=== PATIENT | female | born 1980 | race Caucasian/White ===

== ENCOUNTER 2017-02-05 23:03 | Emergency (ER) | payer SELFPAY ==
--- NOTE | 2017-02-05 23:32 | EDM.PDOC ---
ED HPI GENERAL MEDICAL PROBLEM - General Chief Complaint: Back Pain or Injury Stated Complaint: FALL/LOW BACK PAIN Time Seen by Provider: 02/05/17 23:30 Source of Information: Reports: Patient - History of Present Illness INITIAL COMMENTS - FREE TEXT/NARRATIVE: HISTORY AND PHYSICAL: History of present illness: [] Patient was knocked over by her dog tonight, the dog ran between her legs knocking her down she felt to her bottom she complains of low back pain, history of previous fusion and laminectomy per patient, patient did take Robaxin prior to arrival She rates pain 5/10 nonradiating no footdrop or saddle anesthesia no bowel or urine symptoms Denies head injury loss of consciousness Secondary complaint of left wrist pain Previous hysterectomy Review of systems: As per history of present illness and below otherwise all systems reviewed and negative. Past medical history: As per history of present illness and as reviewed below otherwise noncontributory. Surgical history: As per history of present illness and as reviewed below otherwise noncontributory. Social history: No reported history of drug or alcohol abuse. Family history: As per history of present illness and as reviewed below otherwise noncontributory. Physical exam: HEENT: Atraumatic, normocephalic, pupils reactive, negative for conjunctival pallor or scleral icterus, mucous membranes moist, throat clear, neck supple, nontender, trachea midline. Lungs: Clear to auscultation, breath sounds equal bilaterally, chest nontender. Heart: S1S2, regular, negative for clicks, rubs, or JVD. Abdomen: Soft, nondistended, nontender. Negative for masses or hepatosplenomegaly. Negative for costovertebral tenderness. Pelvis: Stable nontender. 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: Deferred. Rectal: Deferred. Extremities: Atraumatic, negative for cords or calf pain. Neurovascular unremarkable. Neuro: Awake, alert, oriented. Cranial nerves II through XII unremarkable. Cerebellum unremarkable. Motor and sensory unremarkable throughout. Exam nonfocal. Diagnostics: [] Left wrist 3 views Lumbar spine 3 views Therapeutics: [] Toradol 60 mg IM Cataflam Continue Robaxin as prescribed Impression: [] Muscle spasm Acute on chronic low back pain Left wrist pain Chronic history of baseline Definitive disposition and diagnosis as appropriate pending reevaluation and review of above. Treatments SAFETY CONSULTANT: Reports: Other (see below) Other Treatments SAFETY CONSULTANT: robaxin left lower back Pain Score (Numeric/FACES): 8 - Related Data Allergies Allergy/AdvReac Type Severity Reaction Status Date / Time amoxicillin [From Augmentin] Allergy Vomiting Verified 02/05/17 23:11 clavulanic acid Allergy Vomiting Verified 02/05/17 23:11 [From Augmentin] fentanyl Allergy Shortness Verified 02/05/17 23:11 of Breath Latex, Natural Rubber Allergy Blisters Verified 02/05/17 23:11 Home Meds: Home Meds DULoxetine [Cymbalta] 60 mg PO ONETIME 09/06/16 [History] Lisinopril/Hydrochlorothiazide [Lisinopril-Hctz 10-12.5 mg Tab] 1 mg PO DAILY [History] Past Medical History HEENT History: Reports: None Cardiovascular History: Reports: Hypertension Respiratory History: Reports: None Gastrointestinal History: Reports: None 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 History: Reports: None 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: Neurological History: Reports: MS Psychiatric History: Reports: None Endocrine/Metabolic History: Reports: None Hematologic History: Reports: None Oncologic (Cancer) History: Reports: None Dermatologic History: Reports: None - Infectious Disease History Infectious Disease History: Reports: Chicken pox, Measles, MRSA, Mumps - Past Surgical History HEENT Surgical History: Reports: None Female Surgical History: Reports: section, Hysterectomy Musculoskeletal Surgical History: Reports: Other (see below) Other Musculoskeletal Surgeries/Procedures:: back sx Dermatological Surgical History: Reports: None Social & Family History - Family History Family Medical History: Noncontributory - Tobacco Use Smoking Status *Q: Current Every Day Smoker Years of Tobacco use: 15 Packs/Tins Daily: 0.5 - Caffeine Use Caffeine Use: Reports: None - Recreational Drug Use Recreational Drug Use: No ED ROS GENERAL - Review of Systems Review Of Systems: ROS reveals no pertinent complaints other than HPI. ED EXAM, GENERAL - Physical Exam Exam: See Below Course - Vital Signs Last Recorded V/S: Last Vital Signs Temp 37.1 C 02/05/17 23:14 Pulse 97 02/05/17 23:14 Resp 18 02/05/17 23:14 BP 162/93 H 02/05/17 23:14 Pulse Ox 95 02/05/17 23:14 - Orders/Labs/Meds Orders: Active Orders 24 hr Category Date Time Status Lumbar Spine 2 or 3V [CR] Stat Exams 02/05/17 23:29 Taken Wrist Comp Min 3V Lt [CR] Stat Exams 02/05/17 23:29 Taken Ketorolac [Toradol] Med 02/06/17 00:23 Once 60 mg IM ONETIME ONE Departure - Departure Time of Disposition: 00:24 Disposition: Home, Self-Care 01 Condition: good Clinical Impression: Spasm of paraspinal muscle Forms: ED Department Discharge Additional Instructions: Rest Ice 20 minute intervals 3 times daily 7-10 days Medication as prescribed Continue current medications as directed Followup with primary care in 2 weeks sooner as needed The following information is given to patients seen in the emergency department who are being discharged to home. This information is to outline your options for follow-up care. We provide all patients seen in our emergency department with a follow-up referral. The need for follow-up, as well as the timing and circumstances, are variable depending upon the specifics of your emergency department visit. If you don't have a primary care physician on staff, we will provide you with a referral. We always advise you to contact your personal physician following an emergency department visit to inform them of the circumstance of the visit and for follow-up with them and/or the need for any referrals to a consulting specialist. The emergency department will also refer you to a specialist when appropriate. This referral assures that you have the opportunity for follow-up care with a specialist. All of these measure are taken in an effort to provide you with optimal care, which includes your follow-up. Under all circumstances we always encourage you to contact your private physician who remains a resource for coordinating your care. When calling for follow-up care, please make the office aware that this follow-up is from your recent emergency room visit. If for any reason you are refused follow-up, please contact the [facility] emergency department at and asked to speak to the emergency department charge nurse. - My Orders Last 24 Hours: My Active Orders 02/05/17 23:29 Lumbar Spine 2 or 3V [CR] Stat Wrist Comp Min 3V Lt [CR] Stat 02/06/17 00:23 Ketorolac [Toradol] 60 mg IM ONETIME ONE - Assessment/Plan Last 24 Hours: My Active Orders 02/05/17 23:29 Lumbar Spine 2 or 3V [CR] Stat Wrist Comp Min 3V Lt [CR] Stat 02/06/17 00:23 Ketorolac [Toradol] 60 mg IM ONETIME ONE
[2017-02-06] MEDS ORDERED: Ketorolac 60 MG/2 ML SDV IM ONE (00:23)
[2017-02-06 01:25] VITALS: BP 178/95
--- NOTE | 2017-02-06 12:55 | CR ---
EXAM DATE: 02/05/17 PATIENT'S AGE: 36 Patient: WILNER ANTUNEZ Facility: [place], [place] Site . Site : 1980 Study: XRay Spine Lumbar [id number]/28/2017 12:05:53 AM Ordering Physician: Doctor Chaudhary Final Report: INDICATION: Low back pain from injury TECHNIQUE: Lumbar spine radiograph 3 view COMPARISON: None FINDINGS: Bones: Alignment is normal. No acute fractures or aggressive osseous lesions seen. Joints: Transpedicular fusion of L4-5 is noted with an intervening disc spacer. Mild degenerative disc narrowing is present at L3-4. The facet joints are unremarkable in appearance. Soft tissues: Unremarkable. IMPRESSION: 1. No acute osseous injuries are identified. Dictated by Nehemiah Coe MD @ 02/06/2017 12:07:51 AM Dictated by: Nehemiah Coe MD @ 02/06/2017 00:07:54 (Electronic Signature) Report Signed by Proxy and Original Signed Document filed in the Medical Record. MTDD
--- NOTE | 2017-02-06 12:57 | CR ---
EXAM DATE: 02/05/17 PATIENT'S AGE: 36 Patient: WILNER ANTUNEZ Facility: [place], [place] Site . Site : 1980 Study: XRay Extremity Left [id number]/28/2017 12:06:23 AM Ordering Physician: Doctor Chaudhary Final Report: INDICATION: WRIST INJURY TECHNIQUE: Wrist radiograph 3 views left COMPARISON: None FINDINGS: Bones: Alignment is normal. No acute fractures or aggressive bone lesions identified. In particular, the scaphoid is unremarkable in appearance by radiography. Joint spaces: Unremarkable. The carpal rows are intact. Soft tissues: Unremarkable. No radiopaque foreign bodies are identified. IMPRESSION: 1. No acute osseous injuries are noted. Dictated by: Nehemiah Coe MD @ 02/06/2017 00:08:45 (Electronic Signature) Report Signed by Proxy and Original Signed Document filed in the Medical Record. MTDDivine
== END 2017-02-06 01:32 | disposition home or self-care (01) ==
LOC: MW.ED 23:03
DX: M62.830 Muscle spasm of back (principal); M25.532 Pain in left wrist; F17.210 Nicotine dependence, cigarettes, uncomplicated; I10 Essential (primary) hypertension; G35 Multiple sclerosis; Z90.710 Acquired absence of both cervix and uterus; Z98.890 Other specified postprocedural states; Z79.899 Other long term (current) drug therapy; Z88.1 Allergy status to other antibiotic agents; Z91.040 Latex allergy status
CPT/HCPCS: 72100; 73110; 96372; 99283; J1885

== ENCOUNTER 2017-10-17 19:23 | Emergency (ER) | payer SELFPAY ==
[2017-10-17] MEDS ORDERED: Lidocaine 2% Viscous Solution 15 ML Cup PO ONE (19:40)
--- NOTE | 2017-10-17 19:49 | EDM.PDOC ---
ED HPI GENERAL MEDICAL PROBLEM - General Chief Complaint: ENT Problem Stated Complaint: SORE THROAT Time Seen by Provider: 10/17/17 19:35 - History of Present Illness INITIAL COMMENTS - FREE TEXT/NARRATIVE: HISTORY AND PHYSICAL: History of present illness: The patient is a 37-year-old female who has a history of hypertension and MS and presents with complaints of laryngitis and a sore throat that started on Sunday, 4 days ago. She has not had a fever chest pain shortness of breath nausea or vomiting or abdominal pain but has had a hacking cough that she states is usually triggered by a tickle in her throat and laryngitis. She's not coughing any phlegm. She says that she has had this in the past requiring antibiotics and she is concerned that she needs them again. She does not have any local provider here. She has been eating and drinking normally despite the discomfort Review of systems: As per history of present illness and below otherwise all systems reviewed and negative. Past medical history: As per history of present illness and as reviewed below otherwise noncontributory. Surgical history: As per history of present illness and as reviewed below otherwise noncontributory. Social history: No reported history of drug or alcohol abuse. Family history: As per history of present illness and as reviewed below otherwise noncontributory. Physical exam: Gen.: Well-developed well-nourished mildly overweight female who is nontoxic and vital signs been reviewed by me. Patient has a hoarse raspy voice but is not breathless HEENT: Atraumatic, normocephalic, pupils reactive, negative for conjunctival pallor or scleral icterus, mucous membranes moist, throat clear of exudates but there is diffuse posterior oropharyngeal erythema, uvula is midline, there is no cervical adenopathy or nuchal rigidity, neck supple, nontender, trachea midline. Lungs: Clear to auscultation, breath sounds equal bilaterally, chest nontender. Heart: S1S2, regular rate and rhythm no overt murmurs Abdomen: Soft, nondistended, nontender. NABS Pelvis: Deferred 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: Deferred. Rectal: Deferred. Extremities: Atraumatic, negative for cords or calf pain. Neurovascular unremarkable. Neuro: Awake, alert, oriented. Cranial nerves II through XII unremarkable. Cerebellum unremarkable. Motor and sensory unremarkable throughout. Exam nonfocal. Diagnostics: [] Therapeutics: [] I have discussed the patient's elevated blood pressure on arrival here in the department and as she has no headache chest pain shortness of breath neurosensory changes I advised her to continue the medication she has taken and have strongly advised avoiding sodium in her diet and following up with one of our providers for reevaluation and medication adjustment. SHe states understanding Impression: Pharyngitis/laryngitis Definitive disposition and diagnosis as appropriate pending reevaluation and review of above. Throat Pain Score (Numeric/FACES): 9 - Related Data Allergies Allergy/AdvReac Type Severity Reaction Status Date / Time amoxicillin [From Augmentin] Allergy Vomiting Verified 10/17/17 19:36 clavulanic acid Allergy Vomiting Verified 10/17/17 19:36 [From Augmentin] fentanyl Allergy Shortness Verified 10/17/17 19:36 of Breath Latex, Natural Rubber Allergy Blisters Verified 10/17/17 19:36 Home Meds: Home Meds DULoxetine [Cymbalta] 60 mg PO ONETIME 09/06/16 [History] Lisinopril/Hydrochlorothiazide [Lisinopril-Hctz 20-25 mg Tab] 1 each PO DAILY [History] Past Medical History HEENT History: Reports: None Cardiovascular History: Reports: Hypertension Respiratory History: Reports: None Gastrointestinal History: Reports: None 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 History: Reports: None 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: Neurological History: Reports: MS Psychiatric History: Reports: None Endocrine/Metabolic History: Reports: None Hematologic History: Reports: None Oncologic (Cancer) History: Reports: None Dermatologic History: Reports: None - Infectious Disease History Infectious Disease History: Reports: Chicken Pox, Measles, MRSA, Mumps - Past Surgical History Female Surgical History: Reports: Section, Hysterectomy Musculoskeletal Surgical History: Reports: Other (See Below) Social & Family History - Family History Family Medical History: Noncontributory - Tobacco Use Smoking Status *Q: Current Every Day Smoker Years of Tobacco use: 15 Packs/Tins Daily: 0.5 - Caffeine Use Caffeine Use: Reports: None - Recreational Drug Use Recreational Drug Use: No ED ROS GENERAL - Review of Systems Review Of Systems: ROS reveals no pertinent complaints other than HPI. ED EXAM, GENERAL - Physical Exam Exam: See Below (See dictation) Course - Vital Signs Last Recorded V/S: Last Vital Signs Temp 36.7 C 10/17/17 19:38 Pulse 84 10/17/17 19:38 Resp 18 10/17/17 19:38 BP 171/130 H 10/17/17 19:38 Pulse Ox 96 10/17/17 19:38 - Orders/Labs/Meds Meds: Medications Discontinued Medications Generic Name Dose Route Start Last Admin Trade Name Joi PRN Reason Stop Dose Admin Lidocaine HCl 15 ml 10/17/17 19:40 Xylocaine 2% Viscous PO 10/17/17 19:41 ONETIME ONE Departure - Departure Time of Disposition: 19:46 Disposition: Home, Self-Care 01 Condition: Good Clinical Impression: Laryngitis Pharyngitis Qualifiers: Pharyngitis/tonsillitis etiology: unspecified etiology Qualified Code(s): J02.9 - Acute pharyngitis, unspecified - Discharge Information Referrals: PCP,None [Primary Care Provider] - Additional Instructions: The following information is given to patients seen in the emergency department who are being discharged to home. This information is to outline your options for follow-up care. We provide all patients seen in our emergency department with a follow-up referral. The need for follow-up, as well as the timing and circumstances, are variable depending upon the specifics of your emergency department visit. If you don't have a primary care physician on staff, we will provide you with a referral. We always advise you to contact your personal physician following an emergency department visit to inform them of the circumstance of the visit and for follow-up with them and/or the need for any referrals to a consulting specialist. The emergency department will also refer you to a specialist when appropriate. This referral assures that you have the opportunity for followup care with a specialist. All of these measure are taken in an effort to provide you with optimal care, which includes your followup. Under all circumstances we always encourage you to contact your private physician who remains a resource for coordinating your care. When calling for followup care, please make the office aware that this follow-up is from your recent emergency room visit. If for any reason you are refused follow-up, please contact the [facility] emergency department at and ask to speak to the emergency department charge nurse. [facility] Primary care- Internal Medicine and Family [address] [place] [id number] Please use medications as prescribed and please connect with one of our clinic providers for reevaluation and further care in the next few days. Push hydration rest and return to ER as needed and as discussed. Use over-the- counter Tylenol or ibuprofen for pain and fevers. Watch the sodium in the foods that you are eating and please discuss with a new provider in the clinic reevaluation of your blood pressure and your medications.
[2017-10-17 20:07] VITALS: BP 151/101
== END 2017-10-17 19:52 | disposition home or self-care (01) ==
LOC: MW.ED 19:23
DX: J04.0 Acute laryngitis (principal); J02.9 Acute pharyngitis, unspecified; I10 Essential (primary) hypertension; F17.210 Nicotine dependence, cigarettes, uncomplicated; Z88.1 Allergy status to other antibiotic agents; Z91.040 Latex allergy status
CPT/HCPCS: 99282; A9270; 99284

== ENCOUNTER 2017-12-05 12:52 | Emergency (ER) | payer BC ==
[2017-12-05 13:06] VITALS: BP 163/76
[2017-12-05] MEDS ORDERED: Ketorolac 60 MG/2 ML SDV IM ONE (13:17)
--- NOTE | 2017-12-05 13:19 | EDM.PDOC ---
ED HPI GENERAL MEDICAL PROBLEM - General Chief Complaint: Back Pain or Injury Stated Complaint: BACK PAIN Time Seen by Provider: 12/05/17 12:55 Source of Information: Reports: Patient History Limitations: Reports: No Limitations - History of Present Illness INITIAL COMMENTS - FREE TEXT/NARRATIVE: HISTORY AND PHYSICAL: History of present illness: Patient is a 37 showed female who presents to the emergency room with complaints of lumbar back pain 4 days. She does have a history of 5 previous back surgeries to the lumbar spine which were done in [facility]. She states she has last seen a primary care doctor/orthopedic provider since 2014. Reports that over the past 4 days she has had some low back pain that radiates down the left [place]. Does have some leftover Flexeril and [place] which she reports has helped alleviate some of her discomfort. She also takes Aleve and Motrin [id number] which have not subsided her pain. She denies any urinary or fecal incontinence. She is able to ambulate without difficulty. Denies any recent injury, falls, or trauma. Review of systems: As per history of present illness and below otherwise all systems reviewed and negative. Past medical history: As per history of present illness and as reviewed below otherwise noncontributory. Surgical history: As per history of present illness and as reviewed below otherwise noncontributory. Social history: No reported history of drug or alcohol abuse. Family history: As per history of present illness and as reviewed below otherwise noncontributory. Physical exam: Gen.: Well-developed and well-nourished 37 showed female. Alert and oriented. Nontoxic appearing and in no acute distress. HEENT: Atraumatic, normocephalic, pupils reactive, negative for conjunctival pallor or scleral icterus, mucous membranes moist, throat clear, neck supple, nontender, trachea midline. Lungs: Clear to auscultation, breath sounds equal bilaterally, chest nontender. Heart: S1S2, regular rate and rhythm Abdomen: Soft, nondistended, nontender. Negative for masses or hepatosplenomegaly. Negative for costovertebral tenderness. Pelvis: Stable nontender. 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: Deferred. Rectal: Deferred. Extremities: Atraumatic, negative for cords or calf pain. Neurovascular unremarkable. C-Spine/Back: No pinpoint vertebral tenderness upon palpation. No cervical, thoracic, lumbar deformities, step-offs or crepitus. Able to walk on tiptoes and heels without difficulty. No fecal or urinary incontinence. Denies any numbness or tingling to the distal extremities. Neuro: Awake, alert, oriented. Cranial nerves II through XII unremarkable. Cerebellum unremarkable. Motor and sensory unremarkable throughout. Exam nonfocal. Due to the patient's previous surgeries, will get an x-ray today. Patient is aware that she does need to connect with her primary care provider for further management of her low back pain. Toradol will be given here. Lumbar back x-ray shows no acute findings. Hardware appears intact. Prescription for Flexeril (#21) and Cataflam (#30) - NRF. Encourage patient to follow-up in the next couple days with primary care. She voices understanding and is agreeable to plan of care. She denies any questions at this time. Diagnostics: Lumbar x-ray Therapeutics: Toradol IM Impression: Back pain with sciatica Plan: 1. Please take your medications as prescribed. Flexeril may cause drowsiness so do not take it while driving or needing to be functioning at home. These take the Cataflam as directed. Do not take any additional NSAIDs such as Aleve or ibuprofen with this medication. Gentle heat to the area with stretching may also be beneficial. 2. As we discussed it would be important for you to establish care with a local primary care provider for further management of your back pain and general health needs. 3. Follow up as we discussed. Return to the ED as needed and as discussed. Definitive disposition and diagnosis as appropriate pending reevaluation and review of above. Duration: Day(s): Location: Reports: Back lower back Pain Score (Numeric/FACES): 6 - Related Data Allergies Allergy/AdvReac Type Severity Reaction Status Date / Time amoxicillin [From Augmentin] Allergy Vomiting Verified 12/05/17 13:03 clavulanic acid Allergy Vomiting Verified 12/05/17 13:03 [From Augmentin] fentanyl Allergy Shortness Verified 12/05/17 13:03 of Breath Latex, Natural Rubber Allergy Blisters Verified 12/05/17 13:03 Home Meds: Home Meds DULoxetine [Cymbalta] 60 mg PO ONETIME 09/06/16 [History] Lisinopril/Hydrochlorothiazide [Lisinopril-Hctz 20-25 mg Tab] 1 each PO DAILY [History] Past Medical History HEENT History: Reports: None Cardiovascular History: Reports: Hypertension Respiratory History: Reports: None Gastrointestinal History: Reports: None Other Gastrointestinal History: 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 History: Reports: None 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: Musculoskeletal History: Reports: Back Pain, Chronic Neurological History: Reports: MS Psychiatric History: Reports: None Endocrine/Metabolic History: Reports: None Hematologic History: Reports: None Oncologic (Cancer) History: Reports: None Dermatologic History: Reports: None - Infectious Disease History Infectious Disease History: Reports: MRSA - Past Surgical History Female Surgical History: Reports: Section, Hysterectomy Musculoskeletal Surgical History: Reports: Other (See Below) Social & Family History - Family History Family Medical History: Noncontributory - Tobacco Use Smoking Status *Q: Current Every Day Smoker Years of Tobacco use: 13 Packs/Tins Daily: 0.5 - Caffeine Use Caffeine Use: Reports: Soda - Recreational Drug Use Recreational Drug Use: No ED ROS GENERAL - Review of Systems Review Of Systems: ROS reveals no pertinent complaints other than HPI. ED EXAM,LOWER BACK PAIN/INJURY - Physical Exam Exam: See Below (See dictation) Course - Vital Signs Last Recorded V/S: Last Vital Signs Temp 97.2 F 12/05/17 13:04 Pulse 83 12/05/17 13:04 Resp 18 12/05/17 13:04 BP 163/76 H 12/05/17 13:04 Pulse Ox 96 12/05/17 13:04 - Orders/Labs/Meds Orders: Active Orders 24 hr Category Date Time Status Lumbar Spine 2 or 3V [CR] Stat Exams 12/05/17 13:17 Taken Meds: Medications Discontinued Medications Generic Name Dose Route Start Last Admin Trade Name Freq PRN Reason Stop Dose Admin Ketorolac Tromethamine 60 mg 12/05/17 13:17 12/05/17 13:25 Toradol IM 12/05/17 13:18 60 mg ONETIME ONE Administration Departure - Departure Time of Disposition: 14:34 Disposition: Home, Self-Care 01 Clinical Impression: Back pain with sciatica - Discharge Information Referrals: PCP,None [Primary Care Provider] - Forms: ED Department Discharge Additional Instructions: My general discharge The following information is given to patients seen in the emergency department who are being discharged to home. This information is to outline your options for follow-up care. We provide all patients seen in our emergency department with a follow-up referral. The need for follow-up, as well as the timing and circumstances, are variable depending upon the specifics of your emergency department visit. If you don't have a primary care physician on staff, we will provide you with a referral. We always advise you to contact your personal physician following an emergency department visit to inform them of the circumstance of the visit and for follow-up with them and/or the need for any referrals to a consulting specialist. The emergency department will also refer you to a specialist when appropriate. This referral assures that you have the opportunity for follow-up care with a specialist. All of these measure are taken in an effort to provide you with optimal care, which includes your follow-up. Under all circumstances we always encourage you to contact your private physician who remains a resource for coordinating your care. When calling for follow-up care, please make the office aware that this follow-up is from your recent emergency room visit. If for any reason you are refused follow-up, please contact the [facility] Emergency Department at and asked to speak to the emergency department charge nurse. [facility] [address] [place] [id number] 1. Please take your medications as prescribed. Flexeril may cause drowsiness so do not take it while driving or needing to be functioning at home. These take the Cataflam as directed. Do not take any additional NSAIDs such as Aleve or ibuprofen with this medication. Gentle heat to the area with stretching may also be beneficial. 2. As we discussed it would be important for you to establish care with a local primary care provider for further management of your back pain and general health needs. 3. Follow up as we discussed. Return to the ED as needed and as discussed. - My Orders Last 24 Hours: My Active Orders 12/05/17 13:17 Lumbar Spine 2 or 3V [CR] Stat - Assessment/Plan Last 24 Hours: My Active Orders 12/05/17 13:17 Lumbar Spine 2 or 3V [CR] Stat
--- NOTE | 2017-12-05 15:02 | CR ---
EXAMINATION: Lumbar spine HISTORY: Pain COMPARISON: 02/05/2017 TECHNIQUE: AP and lateral views FINDINGS: The lumbar spinal alignment is normal. The vertebral body heights appear well maintained. B one mineralization is normal. Minimal marginal osteophytes are noted. Bilateral posterior fusion hard maza is noted. SI joints are symmetric. IMPRESSION: Mild degenerative and postoperative changes noted within the lumbar spine without acute f indings.
== END 2017-12-05 15:03 | disposition home or self-care (01) ==
LOC: MW.ED 12:52
DX: M54.42 Lumbago with sciatica, left side (principal); I10 Essential (primary) hypertension; F17.210 Nicotine dependence, cigarettes, uncomplicated; Z88.1 Allergy status to other antibiotic agents; Z88.8 Allergy status to other drugs, medicaments and biological substances; Z91.040 Latex allergy status; Z79.899 Other long term (current) drug therapy
CPT/HCPCS: 72100; 96372; 99283; J1885; 99284

== ENCOUNTER 2018-02-26 16:49 | Emergency (ER) | payer BC ==
--- NOTE | 2018-02-26 17:31 | EDM.PDOC ---
ED HPI GENERAL MEDICAL PROBLEM - General Chief Complaint: General Stated Complaint: PT WEAK Time Seen by Provider: 02/26/18 17:30 Source of Information: Reports: Patient - History of Present Illness INITIAL COMMENTS - FREE TEXT/NARRATIVE: HISTORY AND PHYSICAL: History of present illness: [Patient with dental abscess left upper has followed with dentist she is on Keflex and Valentine 7.5 mg which she is overtaken taken 1 tablet every 3 hours, she appears large lethargic mostly due to medication effect No fever nausea vomiting chills sweats no chest pain shortness breath headache dizziness or palpitation no bowel or urine symptoms] Review of systems: As per history of present illness and below otherwise all systems reviewed and negative. Past medical history: As per history of present illness and as reviewed below otherwise noncontributory. Surgical history: As per history of present illness and as reviewed below otherwise noncontributory. Social history: No reported history of drug or alcohol abuse. Family history: As per history of present illness and as reviewed below otherwise noncontributory. Physical exam: HEENT: Atraumatic, normocephalic, pupils reactive, negative for conjunctival pallor or scleral icterus, mucous membranes moist, throat clear, neck supple, nontender, trachea midline. Lungs: Clear to auscultation, breath sounds equal bilaterally, chest nontender. Heart: S1S2, regular, negative for clicks, rubs, or JVD. Abdomen: Soft, nondistended, nontender. Negative for masses or hepatosplenomegaly. Negative for costovertebral tenderness. Pelvis: Stable nontender. 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: Deferred. Rectal: Deferred. Extremities: Atraumatic, negative for cords or calf pain. Neurovascular unremarkable. Neuro: Awake, alert, oriented. Cranial nerves II through XII unremarkable. Cerebellum unremarkable. Motor and sensory unremarkable throughout. Exam nonfocal. Diagnostics: [CBC CMP UA hCG EKG chest 1 view troponin ] Therapeutics: [Continue Keflex as directed Decreased Valentine usage to 7.5 mevery 6-8 hours when necessary ] Impression: Narcotic medication effect History of dental abscesstive disposition and diagnosis as appropriate pending reevaluation and review of above. - Related Data Allergies Allergy/AdvReac Type Severity Reaction Status Date / Time amoxicillin [From Augmentin] Allergy Vomiting Verified 02/26/18 17:13 clavulanic acid Allergy Vomiting Verified 02/26/18 17:13 [From Augmentin] fentanyl Allergy Shortness Verified 02/26/18 17:13 of Breath Latex, Natural Rubber Allergy Blisters Verified 02/26/18 17:13 Home Meds: Home Meds DULoxetine [Cymbalta] 60 mg PO ONETIME 09/06/16 [History] Lisinopril/Hydrochlorothiazide [Lisinopril-Hctz 20-25 mg Tab] 1 each PO DAILY [History] Cephalexin [Keflex] 750 mg PO ASDIRECTED 02/26/18 [History] Diclofenac Sodium/Misoprostol [Arthrotec EC 50 mg-200 Mcg Tab] 1 each PO DAILY 02/26/18 [History] Hydrocodone/Acetaminophen [Valentine 7.5-325 Tablet] 1 each PO ASDIRECTED 02/26/18 [ History] buPROPion [Wellbutrin] 75 mg PO BEDTIME 02/26/18 [History] traMADol [Ultram] 50 mg PO DAILY 02/26/18 [History] Past Medical History HEENT History: Reports: None Cardiovascular History: Reports: Hypertension Respiratory History: Reports: None Gastrointestinal History: Reports: None Other Gastrointestinal History: 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 History: Reports: 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: Musculoskeletal History: Reports: Back Pain, Chronic Neurological History: Reports: MS Psychiatric History: Reports: None Endocrine/Metabolic History: Reports: None Hematologic History: Reports: None Oncologic (Cancer) History: Reports: None Dermatologic History: Reports: None - Infectious Disease History Infectious Disease History: Reports: MRSA - Past Surgical History Female Surgical History: Reports: Section, Hysterectomy Musculoskeletal Surgical History: Reports: Other (See Below) Social & Family History - Family History Family Medical History: Noncontributory - Tobacco Use Smoking Status *Q: Current Every Day Smoker Years of Tobacco use: 16 Packs/Tins Daily: 0.5 - Caffeine Use Caffeine Use: Reports: Soda - Recreational Drug Use Recreational Drug Use: No ED ROS GENERAL - Review of Systems Review Of Systems: ROS reveals no pertinent complaints other than HPI. ED EXAM, GENERAL - Physical Exam Exam: See Below Course - Vital Signs Last Recorded V/S: Last Vital Signs Temp 98.9 F 02/26/18 17:16 Pulse 106 H 02/26/18 17:16 Resp 18 02/26/18 17:16 BP 173/107 H 02/26/18 17:16 Pulse Ox 93 L 02/26/18 17:16 - Orders/Labs/Meds Orders: Active Orders 24 hr Category Date Time Status EKG Documentation Completion [RC] STAT Care 02/26/18 17:15 Active Chest 1V Frontal [CR] Stat Exams 02/26/18 17:15 Taken DRUG SCREEN, URINE [URCHEM] Stat Lab 02/26/18 18:15 Ordered INFLUENZA A+B AG SCREEN [RM] Stat Lab 02/26/18 17:37 Ordered UA W/MICROSCOPIC [URIN] Stat Lab 02/26/18 18:15 Ordered Labs: Laboratory Tests 02/26/18 02/26/18 Range/Units 17:26 17:26 WBC 8.16 (4.0-11.0) K/uL RBC 3.97 L (4.30-5.90) M/uL Hgb 13.0 (12.0-16.0) g/dL Hct 39.1 (36.0-46.0) % MCV 98.5 H (80.0-98.0) fL MCH 32.7 H (27.0-32.0) pg MCHC 33.2 (31.0-37.0) g/dL RDW Std Deviation 46.9 (28.0-62.0) fl RDW Coeff of Dmitriy 13 (11.0-15.0) % Plt Count 245 (150-400) K/uL MPV 10.00 (7.40-12.00) fL Neut % (Auto) 51.6 (48.0-80.0) % Lymph % (Auto) 35.7 (16.0-40.0) % [place] % (Auto) 8.5 (0.0-15.0) % Eos % (Auto) 3.6 (0.0-7.0) % Baso % (Auto) 0.6 (0.0-1.5) % Neut # (Auto) 4.2 (1.4-5.7) K/uL Lymph # (Auto) 2.9 H (0.6-2.4) K/uL [place] # (Auto) 0.7 (0.0-0.8) K/uL Eos # (Auto) 0.3 (0.0-0.7) K/uL Baso # (Auto) 0.1 (0.0-0.1) K/uL Nucleated RBC % 0.0 /100WBC Nucleated RBCs # 0 K/uL Sodium 139 (136-145) mmol/L Potassium 3.7 (3.5-5.1) mmol/L Chloride 102 (98-107) mmol/L Carbon Dioxide 31.6 (21.0-32.0) mmol/L BUN 9 (7.0-18.0) mg/dL Creatinine 0.8 (0.6-1.0) mg/dL Est Cr Clr Drug Dosing TNP Estimated GFR (MDRD) > 60.0 ml/min Glucose 133 H (74-106) mg/dL Calcium 9.1 (8.5-10.1) mg/dL Total Bilirubin 0.2 (0.2-1.0) mg/dL AST 37 (15-37) IU/L ALT 73 H (14-63) IU/L Alkaline Phosphatase 63 (46-116) U/L Creatine Kinase 163 (26-308) U/L Troponin I < 0.050 (0.000-0.056) ng/mL Total Protein 7.2 (6.4-8.2) g/dL Albumin 3.0 L (3.4-5.0) g/dL Globulin 4.2 H (2.0-3.5) g/dL Albumin/Globulin Ratio 0.7 L (1.3-2.8) Departure - Departure Time of Disposition: 18:32 Disposition: Home, Self-Care 01 Condition: Fair Clinical Impression: Dental abscess, Medication side effect - Discharge Information Referrals: PCP,None [Primary Care Provider] - Forms: ED Department Discharge Additional Instructions: Decrease hydrocodone used to 7.5 mg every 6-8 hours Follow-up with dentist as needed No driving while on medications The following information is given to patients seen in the emergency department who are being discharged to home. This information is to outline your options for follow-up care. We provide all patients seen in our emergency department with a follow-up referral. The need for follow-up, as well as the timing and circumstances, are variable depending upon the specifics of your emergency department visit. If you don't have a primary care physician on staff, we will provide you with a referral. We always advise you to contact your personal physician following an emergency department visit to inform them of the circumstance of the visit and for follow-up with them and/or the need for any referrals to a consulting specialist. The emergency department will also refer you to a specialist when appropriate. This referral assures that you have the opportunity for follow-up care with a specialist. All of these measure are taken in an effort to provide you with optimal care, which includes your follow-up. Under all circumstances we always encourage you to contact your private physician who remains a resource for coordinating your care. When calling for follow-up care, please make the office aware that this follow-up is from your recent emergency room visit. If for any reason you are refused follow-up, please contact the [facility] emergency department at and asked to speak to the emergency department charge nurse. - My Orders Last 24 Hours: My Active Orders 02/26/18 17:15 EKG Documentation Completion [RC] STAT Chest 1V Frontal [CR] Stat 02/26/18 17:37 INFLUENZA A+B AG SCREEN [RM] Stat 02/26/18 18:15 DRUG SCREEN, URINE [URCHEM] Stat UA W/MICROSCOPIC [URIN] Stat - Assessment/Plan Last 24 Hours: My Active Orders 02/26/18 17:15 EKG Documentation Completion [RC] STAT Chest 1V Frontal [CR] Stat 02/26/18 17:37 INFLUENZA A+B AG SCREEN [RM] Stat 02/26/18 18:15 DRUG SCREEN, URINE [URCHEM] Stat UA W/MICROSCOPIC [URIN] Stat
[2018-02-26 17:57] LABS: CHLORIDE,CL 102 mmol/L (98-107); SODIUM,NA 139 mmol/L (136-145)
[2018-02-26 18:55] VITALS: BP 157/98
--- NOTE | 2018-02-27 09:31 | CR ---
EXAM DATE: 02/26/18 PATIENT'S AGE: 37 Patient: WILNER ANTUNEZ Facility: [place], [place] Site . Site : 1980 Study: XRay Chest [id number]/[id number] 6:02:12 PM Ordering Physician: Zaire Rider Final Report: INDICATION: Weakness TECHNIQUE: Chest 1 view COMPARISON: None FINDINGS: Cardiovascular and mediastinum: Heart size and vasculature are normal in caliber and appearance. Lungs and pleural spaces: Lungs are clear. No sign of infiltrate or mass. No sign of pleural effusion. No pneumothorax. Bones and soft tissues: No significant findings. IMPRESSION: No acute or significant findings. Dictated by Martin Keen MD @ Feb 26 2018 6:23PM (Electronic Signature) Report Signed by Proxy. TOÑO
== END 2018-02-26 18:55 | disposition home or self-care (01) ==
LOC: MW.ED 16:49
DX: R53.83 Other fatigue (principal); T36.1X5A Adverse effect of cephalosporins and other beta-lactam antibiotics, initial encounter; T40.2X5A Adverse effect of other opioids, initial encounter; K04.7 Periapical abscess without sinus; I10 Essential (primary) hypertension; F17.210 Nicotine dependence, cigarettes, uncomplicated; Z88.8 Allergy status to other drugs, medicaments and biological substances; Z79.899 Other long term (current) drug therapy
CPT/HCPCS: 36415; 71045; 71045-26; 80053; 80305; 81001; 82550; 84484; 85025; 87804; 99284-25

== ENCOUNTER 2018-04-24 23:24 | Emergency (ER) | payer BC ==
[2018-04-24] MEDS ORDERED: Albuterol/Ipratropium 3.0-0.5 MG/3 ML Neb Soln NEB ONE (23:32)
--- NOTE | 2018-04-24 23:35 | EDM.PDOC ---
ED HPI GENERAL MEDICAL PROBLEM - General Chief Complaint: Respiratory Problem Stated Complaint: SHORTNESS OF BREATH Time Seen by Provider: 04/24/18 23:27 - History of Present Illness INITIAL COMMENTS - FREE TEXT/NARRATIVE: HISTORY AND PHYSICAL: History of present illness: Patient 38-year-old female presents with a concern of shortness of breath since 4:00 this afternoon she is a smoker she denies history of pulmonary disease or cardiac disease denies chest pain nausea vomiting palpitations fever chills or other concern Review of systems: As per history of present illness and below otherwise all systems reviewed and negative. Past medical history: As per history of present illness and as reviewed below otherwise noncontributory. Surgical history: As per history of present illness and as reviewed below otherwise noncontributory. Social history: No reported history of drug or alcohol abuse. Family history: As per history of present illness and as reviewed below otherwise noncontributory. Physical exam: HEENT: Atraumatic, normocephalic, pupils reactive, negative for conjunctival pallor or scleral icterus, mucous membranes moist, throat clear, neck supple, nontender, trachea midline. Lungs: Diminished no rhonchi or crackles, breath sounds equal bilaterally, chest nontender. Heart: S1S2, regular, negative for clicks, rubs, or JVD. Abdomen: Soft, nondistended, nontender. Negative for masses or hepatosplenomegaly. Negative for costovertebral tenderness. Pelvis: Stable nontender. 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: Deferred. Rectal: Deferred. Extremities: Atraumatic, negative for cords or calf pain. Neurovascular unremarkable. Neuro: Awake, alert, oriented. Cranial nerves II through XII unremarkable. Cerebellum unremarkable. Motor and sensory unremarkable throughout. Exam nonfocal. Diagnostics: CBC CMP troponin chest x-ray EKG urine drug screen Therapeutics: Albuterol ipratropium nebulizer Impression: #1 dyspnea #2 history of smoking Definitive disposition and diagnosis as appropriate pending reevaluation and review of above. chest area Pain Score (Numeric/FACES): 4 - Related Data Allergies Allergy/AdvReac Type Severity Reaction Status Date / Time amoxicillin [From Augmentin] Allergy Vomiting Verified 02/26/18 17:13 clavulanic acid Allergy Vomiting Verified 02/26/18 17:13 [From Augmentin] fentanyl Allergy Shortness Verified 02/26/18 17:13 of Breath Latex, Natural Rubber Allergy Blisters Verified 02/26/18 17:13 Home Meds: Home Meds DULoxetine [Cymbalta] 60 mg PO ONETIME 09/06/16 [History] Lisinopril/Hydrochlorothiazide [Lisinopril-Hctz 20-25 mg Tab] 1 each PO DAILY [History] Cephalexin [Keflex] 750 mg PO ASDIRECTED 02/26/18 [History] Diclofenac Sodium/Misoprostol [Arthrotec EC 50 mg-200 Mcg Tab] 1 each PO DAILY 02/26/18 [History] Hydrocodone/Acetaminophen [[place] 7.5-325 Tablet] 1 each PO ASDIRECTED 02/26/18 [ History] buPROPion [Wellbutrin] 75 mg PO BEDTIME 02/26/18 [History] traMADol [Ultram] 50 mg PO DAILY 02/26/18 [History] Past Medical History HEENT History: Reports: None Cardiovascular History: Reports: Hypertension Respiratory History: Reports: None Gastrointestinal History: Reports: None Other Gastrointestinal History: 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 History: Reports: None 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: Musculoskeletal History: Reports: Back Pain, Chronic Neurological History: Reports: MS Psychiatric History: Reports: None Endocrine/Metabolic History: Reports: None Hematologic History: Reports: None Immunologic History: Reports: None Oncologic (Cancer) History: Reports: None Dermatologic History: Reports: None - Infectious Disease History Infectious Disease History: Reports: None - Past Surgical History Female Surgical History: Reports: Section, Hysterectomy Musculoskeletal Surgical History: Reports: Other (See Below) Social & Family History - Family History Family Medical History: Noncontributory - Tobacco Use Smoking Status *Q: Current Every Day Smoker Years of Tobacco use: 12 Packs/Tins Daily: 0.5 - Caffeine Use Caffeine Use: Reports: Soda - Recreational Drug Use Recreational Drug Use: No ED ROS GENERAL - Review of Systems Review Of Systems: ROS reveals no pertinent complaints other than HPI. ED EXAM, GENERAL - Physical Exam Exam: See Below (The dictation) Course - Vital Signs Last Recorded V/S: Last Vital Signs Temp 36.7 C 04/24/18 23:28 Pulse 110 H 04/24/18 23:28 Resp 20 04/24/18 23:28 BP 158/109 H 04/24/18 23:28 Pulse Ox 92 L 04/24/18 23:28 - Orders/Labs/Meds Orders: Active Orders 24 hr Category Date Time Status EKG Documentation Completion [RC] STAT Care 04/24/18 23:32 Active RT Aerosol Therapy [RC] ASDIRECTED Care 04/24/18 23:32 Active Chest 1V Frontal [CR] Stat Exams 04/24/18 23:32 Taken DRUG SCREEN, URINE [URCHEM] Stat Lab 04/25/18 00:15 Ordered Labs: Laboratory Tests 04/24/18 04/24/18 04/24/18 Range/Units 23:50 23:50 23:50 WBC 12.06 H (4.0-11.0) K/uL RBC 4.14 L (4.30-5.90) M/uL Hgb 13.4 (12.0-16.0) g/dL Hct 40.4 (36.0-46.0) % MCV 97.6 (80.0-98.0) fL MCH 32.4 H (27.0-32.0) pg MCHC 33.2 (31.0-37.0) g/dL RDW Std Deviation 46.5 (28.0-62.0) fl RDW Coeff of Dmitriy 13 (11.0-15.0) % Plt Count 287 (150-400) K/uL MPV 9.70 (7.40-12.00) fL Neut % (Auto) 60.7 (48.0-80.0) % Lymph % (Auto) 30.7 (16.0-40.0) % [place] % (Auto) 5.6 (0.0-15.0) % Eos % (Auto) 2.5 (0.0-7.0) % Baso % (Auto) 0.5 (0.0-1.5) % Neut # (Auto) 7.3 H (1.4-5.7) K/uL Lymph # (Auto) 3.7 H (0.6-2.4) K/uL [place] # (Auto) 0.7 (0.0-0.8) K/uL Eos # (Auto) 0.3 (0.0-0.7) K/uL Baso # (Auto) 0.1 (0.0-0.1) K/uL Nucleated RBC % 0.0 /100WBC Nucleated RBCs # 0 K/uL INR 0.90 Sodium 139 (136-145) mmol/L Potassium 4.3 (3.5-5.1) mmol/L Chloride 102 (98-107) mmol/L Carbon Dioxide 31.0 (21.0-32.0) mmol/L BUN 12 (7.0-18.0) mg/dL Creatinine 1.1 H (0.6-1.0) mg/dL Est Cr Clr Drug Dosing 60.47 mL/min Estimated GFR (MDRD) 55.9 ml/min Glucose 203 H (74-106) mg/dL Calcium 9.0 (8.5-10.1) mg/dL Total Bilirubin 0.1 L (0.2-1.0) mg/dL AST 25 (15-37) IU/L ALT 45 (14-63) IU/L Alkaline Phosphatase 65 (46-116) U/L Troponin I < 0.050 (0.000-0.056) ng/mL B-Natriuretic Peptide (<100) PG/ML Total Protein 7.3 (6.4-8.2) g/dL Albumin 3.5 (3.4-5.0) g/dL Globulin 3.8 H (2.0-3.5) g/dL Albumin/Globulin Ratio 0.9 L (1.3-2.8) Urine Opiates Screen (NEGATIVE) Ur Oxycodone Screen (NEGATIVE) Urine Methadone Screen (NEGATIVE) Ur Barbiturates Screen (NEGATIVE) Ur Phencyclidine Scrn (NEGATIVE) Ur Amphetamine Screen (NEGATIVE) U Methamphetamines Scrn (NEGATIVE) U Benzodiazepines Scrn (NEGATIVE) U Cocaine Metab Screen (NEGATIVE) U Marijuana (THC) Screen (NEGATIVE) 04/24/18 04/25/18 Range/Units 23:50 00:15 WBC (4.0-11.0) K/uL RBC (4.30-5.90) M/uL Hgb (12.0-16.0) g/dL Hct (36.0-46.0) % MCV (80.0-98.0) fL MCH (27.0-32.0) pg MCHC (31.0-37.0) g/dL RDW Std Deviation (28.0-62.0) fl RDW Coeff of Dmitriy (11.0-15.0) % Plt Count (150-400) K/uL MPV (7.40-12.00) fL Neut % (Auto) (48.0-80.0) % Lymph % (Auto) (16.0-40.0) % [place] % (Auto) (0.0-15.0) % Eos % (Auto) (0.0-7.0) % Baso % (Auto) (0.0-1.5) % Neut # (Auto) (1.4-5.7) K/uL Lymph # (Auto) (0.6-2.4) K/uL [place] # (Auto) (0.0-0.8) K/uL Eos # (Auto) (0.0-0.7) K/uL Baso # (Auto) (0.0-0.1) K/uL Nucleated RBC % /100WBC Nucleated RBCs # K/uL INR Sodium (136-145) mmol/L Potassium (3.5-5.1) mmol/L Chloride (98-107) mmol/L Carbon Dioxide (21.0-32.0) mmol/L BUN (7.0-18.0) mg/dL Creatinine (0.6-1.0) mg/dL Est Cr Clr Drug Dosing mL/min Estimated GFR (MDRD) ml/min Glucose (74-106) mg/dL Calcium (8.5-10.1) mg/dL Total Bilirubin (0.2-1.0) mg/dL AST (15-37) IU/L ALT (14-63) IU/L Alkaline Phosphatase (46-116) U/L Troponin I (0.000-0.056) ng/mL B-Natriuretic Peptide < 15 (<100) PG/ML Total Protein (6.4-8.2) g/dL Albumin (3.4-5.0) g/dL Globulin (2.0-3.5) g/dL Albumin/Globulin Ratio (1.3-2.8) Urine Opiates Screen POSITIVE (NEGATIVE) Ur Oxycodone Screen NEGATIVE (NEGATIVE) Urine Methadone Screen NEGATIVE (NEGATIVE) Ur Barbiturates Screen NEGATIVE (NEGATIVE) Ur Phencyclidine Scrn NEGATIVE (NEGATIVE) Ur Amphetamine Screen NEGATIVE (NEGATIVE) U Methamphetamines Scrn NEGATIVE (NEGATIVE) U Benzodiazepines Scrn POSITIVE (NEGATIVE) U Cocaine Metab Screen NEGATIVE (NEGATIVE) U Marijuana (THC) Screen NEGATIVE (NEGATIVE) Meds: Medications Discontinued Medications Generic Name Dose Route Start Last Admin Trade Name Joi PRN Reason Stop Dose Admin Albuterol/Ipratropium 3 ml 04/24/18 23:32 04/24/18 23:40 Duoneb 3.0-0.5 Mg/3 Ml NEB 04/24/18 23:33 3 ml ONETIME ONE Administration Departure - Departure Time of Disposition: :03 Disposition: Home, Self-Care 01 Condition: Good Clinical Impression: Dyspnea - Discharge Information Referrals: PCP,None [Primary Care Provider] - Forms: ED Department Discharge Additional Instructions: The following information is given to patients seen in the emergency department who are being discharged to home. This information is to outline your options for follow-up care. We provide all patients seen in our emergency department with a follow-up referral. The need for follow-up, as well as the timing and circumstances, are variable depending upon the specifics of your emergency department visit. If you don't have a primary care physician on staff, we will provide you with a referral. We always advise you to contact your personal physician following an emergency department visit to inform them of the circumstance of the visit and for follow-up with them and/or the need for any referrals to a consulting specialist. The emergency department will also refer you to a specialist when appropriate. This referral assures that you have the opportunity for followup care with a specialist. All of these measure are taken in an effort to provide you with optimal care, which includes your followup. Under all circumstances we always encourage you to contact your private physician who remains a resource for coordinating your care. When calling for followup care, please make the office aware that this follow-up is from your recent emergency room visit. If for any reason you are refused follow-up, please contact the [facility] emergency department at and asked to speak to the emergency department charge nurse. Albuterol as prescribed stop smoking follow-up primary medical doctor 1-2 days return as needed as discussed - My Orders Last 24 Hours: My Active Orders 04/24/18 23:32 EKG Documentation Completion [RC] STAT RT Aerosol Therapy [RC] ASDIRECTED Chest 1V Frontal [CR] Stat 04/25/18 00:15 DRUG SCREEN, URINE [URCHEM] Stat - Assessment/Plan Last 24 Hours: My Active Orders 04/24/18 23:32 EKG Documentation Completion [RC] STAT RT Aerosol Therapy [RC] ASDIRECTED Chest 1V Frontal [CR] Stat 04/25/18 00:15 DRUG SCREEN, URINE [URCHEM] Stat
[2018-04-25 00:27] LABS: CHLORIDE,CL 102 mmol/L (98-107); SODIUM,NA 139 mmol/L (136-145)
[2018-04-25 01:07] VITALS: BP 154/86
--- NOTE | 2018-04-25 09:45 | CR ---
EXAM DATE: 04/24/18 PATIENT'S AGE: 38 Patient: WILNER ANTUNEZ Facility: [place], [place] Site . Site : 1980 Study: XRay Chest [id number]/[id number] 11:53:34 PM Ordering Physician: Bin Reilly Final Report: INDICATION: CP, SOB TECHNIQUE: Chest 1 view. COMPARISON: 02/26/18 FINDINGS: Cardiovascular and mediastinum: Heart size and vasculature are normal in caliber and appearance. Mediastinum is within normal limits. Lungs and pleural space: Lungs are clear. No sign of infiltrate or mass. No sign of pleural effusion. No pneumothorax. Bones and soft tissues: No significant findings. IMPRESSION: Unremarkable chest. Dictated by: Ham Evans MD @ 04/25/2018 00:27:22 (Electronic Signature) Report Signed by Proxy. TOÑO
== END 2018-04-25 01:10 | disposition home or self-care (01) ==
LOC: MW.ED 23:24
DX: R06.00 Dyspnea, unspecified (principal); F17.210 Nicotine dependence, cigarettes, uncomplicated; I10 Essential (primary) hypertension; Z88.1 Allergy status to other antibiotic agents; Z91.040 Latex allergy status; Z88.8 Allergy status to other drugs, medicaments and biological substances; Z79.899 Other long term (current) drug therapy
CPT/HCPCS: 36415; 71045; 71045-26; 80053; 80305; 83880; 84484; 85025; 85610; 94640; 99283; 99285-25

== ENCOUNTER 2018-05-03 19:02 | Emergency (ER) | payer BC | END 2018-05-03 19:11 | disposition left against medical advice (07) | LOC: MW.ED 19:02 | DX: Z53.21 Procedure and treatment not carried out due to patient leaving prior to being seen by health care provider (principal) | CPT/HCPCS: 99281 ==

== ENCOUNTER 2018-05-25 11:40 | Emergency (ER) | payer BC ==
[2018-05-25 11:53] VITALS: BP 152/95
[2018-05-25] MEDS ORDERED: Benzocaine 20% Topical Spray UD MUCMEM ONE (12:06)
[2018-05-25] MEDS ORDERED: Lidocaine 2% Viscous Solution 15 ML Cup PO ONE (12:06)
--- NOTE | 2018-05-25 12:10 | EDM.PDOC ---
ED HPI GENERAL MEDICAL PROBLEM - General Chief Complaint: General Stated Complaint: TOOTH PAIN Time Seen by Provider: 05/25/18 11:44 Source of Information: Reports: Patient History Limitations: Reports: No Limitations - History of Present Illness INITIAL COMMENTS - FREE TEXT/NARRATIVE: History of present illness: []Patient had 2 wisdom teeth pulled last week and ran out of her pain medicines and states that she has swelling and sharp pain down the left side of her throat when she swallows. Patient denies any fevers or difficulty breathing or swallowing, she states she feels that her left jaw swollen. Review of systems: As per history of present illness and below otherwise all systems reviewed and negative. Past medical history: As per history of present illness and as reviewed below otherwise noncontributory. Surgical history: As per history of present illness and as reviewed below otherwise noncontributory. Social history: No reported history of drug or alcohol abuse. Family history: As per history of present illness and as reviewed below otherwise noncontributory. Physical exam: General: Well developed, well nourished in NAD HEENT: Atraumatic, normocephalic, pupils reactive, negative for conjunctival pallor or scleral icterus, mucous membranes moist, throat clear, neck supple, nontender, trachea midline. No facial swelling or erythema, no strid no gingival drainage or dry socket noted Lungs: Clear to auscultation, breath sounds equal bilaterally, chest nontender. Heart: S1S2, regular, negative for clicks, rubs, or JVD. Abdomen: Soft, nondistended, nontender. Negative for masses or hepatosplenomegaly. Negative for costovertebral tenderness. Pelvis: Stable nontender. 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: Deferred. Rectal: Deferred. Extremities: Atraumatic, negative for cords or calf pain. Neurovascular unremarkable. Neuro: Awake, alert, oriented. Cranial nerves II through XII unremarkable. Cerebellum unremarkable. Motor and sensory unremarkable throughout. Exam nonfocal. Diagnostics: [] Therapeutics: []Dental balls Impression: []Post operative pain nausea wisdom teeth extraction Plan: []Dental balls for pain, clindamycin 3 times a day for 10 days dentist. Definitive disposition and diagnosis as appropriate pending reevaluation and review of above. Tooth/Teeth Pain Score (Numeric/FACES): 10 - Related Data Allergies Allergy/AdvReac Type Severity Reaction Status Date / Time fentanyl Allergy Shortness Verified 05/25/18 11:52 of Breath Latex, Natural Rubber Allergy Blisters Verified 05/25/18 11:52 Home Meds: Home Meds DULoxetine [Cymbalta] 60 mg PO ONETIME 09/06/16 [History] Lisinopril/Hydrochlorothiazide [Lisinopril-Hctz 20-25 mg Tab] 1 each PO DAILY [History] buPROPion [Wellbutrin] 300 mg PO BEDTIME 02/26/18 [History] Clindamycin HCl 300 mg PO TID #30 capsule 05/25/18 [Rx] oxyCODONE HCl/Acetaminophen [Oxycodone-Acetaminophen 5-325] 1 tab PO Q6HR PRN [History] Past Medical History HEENT History: Reports: None Cardiovascular History: Reports: Hypertension Respiratory History: Reports: None Gastrointestinal History: Reports: None Other Gastrointestinal History: 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 History: Reports: None 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: Musculoskeletal History: Reports: Back Pain, Chronic Neurological History: Reports: MS Psychiatric History: Reports: None Endocrine/Metabolic History: Reports: None Hematologic History: Reports: None Immunologic History: Reports: None Oncologic (Cancer) History: Reports: None Dermatologic History: Reports: None - Infectious Disease History Infectious Disease History: Reports: Chicken Pox, MRSA - Past Surgical History Female Surgical History: Reports: Section, Hysterectomy Musculoskeletal Surgical History: Reports: Other (See Below) Social & Family History - Family History Family Medical History: Noncontributory - Tobacco Use Smoking Status *Q: Current Every Day Smoker Years of Tobacco use: 15 Packs/Tins Daily: 1 - Caffeine Use Caffeine Use: Reports: Soda - Recreational Drug Use Recreational Drug Use: No ED ROS GENERAL - Review of Systems Review Of Systems: See Below (See history of present illness) ED EXAM, GENERAL - Physical Exam Exam: See Below (See history of present illness) Course - Vital Signs Last Recorded V/S: Last Vital Signs Temp 97.3 F 05/25/18 11:48 Pulse 96 05/25/18 11:48 Resp 18 05/25/18 11:48 BP 152/95 H 05/25/18 11:48 Pulse Ox Departure - Departure Time of Disposition: 12:10 Disposition: Home, Self-Care 01 Condition: Good Clinical Impression: Pain, dental - Discharge Information Prescriptions: Clindamycin HCl 300 mg PO TID #30 capsule Referrals: PCP,None [Primary Care Provider] - Additional Instructions: The following information is given to patients seen in the emergency department who are being discharged to home. This information is to outline your options for follow-up care. We provide all patients seen in our emergency department with a follow-up referral. The need for follow-up, as well as the timing and circumstances, are variable depending upon the specifics of your emergency department visit. If you don't have a primary care physician on staff, we will provide you with a referral. We always advise you to contact your personal physician following an emergency department visit to inform them of the circumstance of the visit and for follow-up with them and/or the need for any referrals to a consulting specialist. The emergency department will also refer you to a specialist when appropriate. This referral assures that you have the opportunity for follow-up care with a specialist. All of these measure are taken in an effort to provide you with optimal care, which includes your follow-up. Under all circumstances we always encourage you to contact your private physician who remains a resource for coordinating your care. When calling for follow-up care, please make the office aware that this follow-up is from your recent emergency room visit. If for any reason you are refused follow-up, please contact the [facility] Emergency Department at and asked to speak to the emergency department charge nurse. [facility] [address] [place] [id number]
== END 2018-05-25 12:34 | disposition home or self-care (01) ==
LOC: MW.ED 11:40
DX: G89.18 Other acute postprocedural pain (principal); K08.89 Other specified disorders of teeth and supporting structures; I10 Essential (primary) hypertension; F17.210 Nicotine dependence, cigarettes, uncomplicated; Z88.8 Allergy status to other drugs, medicaments and biological substances; Z91.040 Latex allergy status; Z79.899 Other long term (current) drug therapy; Z98.818 Other dental procedure status
CPT/HCPCS: 99282; A9270

== ENCOUNTER 2019-02-10 15:38 | Emergency (ER) | payer BC, OTHER ==
--- NOTE | 2019-02-10 16:25 | EDM.PDOC ---
ED HPI GENERAL MEDICAL PROBLEM - General Chief Complaint: General Stated Complaint: cast problems Time Seen by Provider: 02/10/19 15:39 Source of Information: Reports: Patient History Limitations: Reports: No Limitations - History of Present Illness INITIAL COMMENTS - FREE TEXT/NARRATIVE: History of present illness: []Patient as a foot fracture and is in a cast that went lowering despite using a cast condom. All of by Dr. Marti who requested she come in to have the cast removed and a posterior splint placed. She has no Complaints. Review of systems: As per history of present illness and below otherwise all systems reviewed and negative. Past medical history: As per history of present illness and as reviewed below otherwise noncontributory. Surgical history: As per history of present illness and as reviewed below otherwise noncontributory. Social history: No reported history of drug or alcohol abuse. Family history: As per history of present illness and as reviewed below otherwise noncontributory. Physical exam: General: Well developed, well nourished in NAD HEENT: Atraumatic, normocephalic, pupils reactive, negative for conjunctival pallor or scleral icterus, mucous membranes moist, throat clear, neck supple, nontender, trachea midline. Lungs: Clear to auscultation, breath sounds equal bilaterally, chest nontender. Heart: S1S2, regular, negative for clicks, rubs, or JVD. Abdomen: NABS, Soft, nondistended, nontender. Negative for masses or hepatosplenomegaly. Negative for costovertebral tenderness. Pelvis: Stable nontender. 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: Deferred. Rectal: Deferred. Extremities: Atraumatic, negative for cords or calf pain. Neurovascular unremarkable. Neuro: Awake, alert, oriented. Cranial nerves II through XII unremarkable. Cerebellum unremarkable. Motor and sensory unremarkable throughout. Exam nonfocal. Skin:warm and dry Diagnostics: None Therapeutics: Old cast removed with the cast cutter, posterior splint placed ED Course: Unremarkable Impression: Cast removal and splint placed Prescriptions: None Plan: Follow-up Dr. Marti as scheduled. Definitive disposition and diagnosis as appropriate pending reevaluation and review of above. 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 History: Reports: None 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: Musculoskeletal History: Reports: Back Pain, Chronic Neurological History: Reports: MS Psychiatric History: Reports: None Endocrine/Metabolic History: Reports: None Hematologic History: Reports: None Immunologic History: Reports: None Oncologic (Cancer) History: Reports: None Dermatologic History: Reports: None - Infectious Disease History Infectious Disease History: Reports: MRSA - Past Surgical History Female Surgical History: Reports: Section, Hysterectomy Musculoskeletal Surgical History: Reports: Other (See Below) Social & Family History - Family History Family Medical History: Noncontributory - Tobacco Use Smoking Status *Q: Current Every Day Smoker Years of Tobacco use: 15 Packs/Tins Daily: 0.5 - Caffeine Use Caffeine Use: Reports: Soda - Recreational Drug Use Recreational Drug Use: No ED ROS GENERAL - Review of Systems Review Of Systems: ROS reveals no pertinent complaints other than HPI. ED EXAM, GENERAL - Physical Exam Exam: See Below (See history of present illness) Course - Vital Signs Last Recorded V/S: Last Vital Signs Temp 98.5 F 02/10/19 15:55 Pulse 104 H 02/10/19 15:55 Resp 16 02/10/19 15:55 BP 187/118 H 02/10/19 15:55 Pulse Ox 95 02/10/19 15:55 Departure - Departure Time of Disposition: 16:25 Disposition: Home, Self-Care 01 Condition: Good Clinical Impression: Cast removal - Discharge Information *PRESCRIPTION DRUG MONITORING PROGRAM REVIEWED*: No *COPY OF PRESCRIPTION DRUG MONITORING REPORT IN PATIENT BERTHA: No Prescriptions: Lisinopril/Hydrochlorothiazide [Lisinopril-Hctz 20-12.5 mg Tab] 1 each PO DAILY #30 tablet Referrals: PCP,Unknown [Primary Care Provider] - Forms: ED Department Discharge Additional Instructions: The following information is given to patients seen in the emergency department who are being discharged to home. This information is to outline your options for follow-up care. We provide all patients seen in our emergency department with a follow-up referral. The need for follow-up, as well as the timing and circumstances, are variable depending upon the specifics of your emergency department visit. If you don't have a primary care physician on staff, we will provide you with a referral. We always advise you to contact your personal physician following an emergency department visit to inform them of the circumstance of the visit and for follow-up with them and/or the need for any referrals to a consulting specialist. The emergency department will also refer you to a specialist when appropriate. This referral assures that you have the opportunity for follow-up care with a specialist. All of these measure are taken in an effort to provide you with optimal care, which includes your follow-up. Under all circumstances we always encourage you to contact your private physician who remains a resource for coordinating your care. When calling for follow-up care, please make the office aware that this follow-up is from your recent emergency room visit. If for any reason you are refused follow-up, please contact the [facility] Emergency Department at and asked to speak to the emergency department charge nurse. Follow-up with: Dr Kaia Marti, [place] [address] [place] [address] [id number] [place] [address]
[2019-02-10 17:10] VITALS: BP 174/99
== END 2019-02-10 17:07 | disposition home or self-care (01) ==
LOC: MW.ED 15:38
DX: S92.901D Unspecified fracture of right foot, subsequent encounter for fracture with routine healing (principal); I10 Essential (primary) hypertension; F17.210 Nicotine dependence, cigarettes, uncomplicated; X58.XXXD Exposure to other specified factors, subsequent encounter
CPT/HCPCS: 99282

== ENCOUNTER 2019-04-02 21:36 | Emergency (ER) | payer BC, OTHER, SELFPAY ==
--- NOTE | 2019-04-02 22:03 | EDM.PDOC ---
ED HPI GENERAL MEDICAL PROBLEM - General Stated Complaint: POSSIBLE UTI Time Seen by Provider: 04/02/19 21:45 Source of Information: Reports: Patient - History of Present Illness INITIAL COMMENTS - FREE TEXT/NARRATIVE: HISTORY AND PHYSICAL: History of present illness: [Patient presents with frequency and dysuria for 3 days increasing in severity no fever nausea vomiting chills sweats She also notes she is out of her blood pressure medication lisinopril hydrochlorothiazide has not been taking over the last couple of weeks ] Review of systems: As per history of present illness and below otherwise all systems reviewed and negative. Past medical history: As per history of present illness and as reviewed below otherwise noncontributory. Surgical history: As per history of present illness and as reviewed below otherwise noncontributory. Social history: No reported history of drug or alcohol abuse. Family history: As per history of present illness and as reviewed below otherwise noncontributory. Physical exam: HEENT: Atraumatic, normocephalic, pupils reactive, negative for conjunctival pallor or scleral icterus, mucous membranes moist, throat clear, neck supple, nontender, trachea midline. Lungs: Clear to auscultation, breath sounds equal bilaterally, chest nontender. Heart: S1S2, regular, negative for clicks, rubs, or JVD. Abdomen: Soft, nondistended, nontender. Negative for masses or hepatosplenomegaly. Negative for costovertebral tenderness. Pelvis: Stable nontender. 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: Deferred. Rectal: Deferred. Extremities: Atraumatic, negative for cords or calf pain. Neurovascular unremarkable. Neuro: Awake, alert, oriented. Cranial nerves II through XII unremarkable. Cerebellum unremarkable. Motor and sensory unremarkable throughout. Exam nonfocal. Diagnostics: [UA hCG ] Therapeutics: [ Cipro 500 by mouth twice a day 7 days Diflucan ] Pyridium Impression: UTI Hypertension medication noncompliancefinitive disposition and diagnosis as appropriate pending reevaluation and review of above. left flank Pain Score (Numeric/FACES): 8 - Related Data Allergies Allergy/AdvReac Type Severity Reaction Status Date / Time fentanyl Allergy Shortness Verified 04/02/19 22:29 of Breath Latex, Natural Rubber Allergy Blisters Verified 04/02/19 22:29 Home Meds: Home Meds . 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: Musculoskeletal History: Reports: Back Pain, Chronic Neurological History: Reports: MS Psychiatric History: Reports: None Endocrine/Metabolic History: Reports: None Hematologic History: Reports: None Immunologic History: Reports: None Oncologic (Cancer) History: Reports: None Dermatologic History: Reports: None - Infectious Disease History Infectious Disease History: Reports: MRSA - Past Surgical History Female Surgical History: Reports: Section, Hysterectomy Musculoskeletal Surgical History: Reports: Other (See Below) Social & Family History - Family History Family Medical History: Noncontributory - Caffeine Use Caffeine Use: Reports: Soda ED ROS GENERAL - Review of Systems Review Of Systems: See Below ED EXAM, GENERAL - Physical Exam Exam: See Below Course - Vital Signs Last Recorded V/S: Last Vital Signs Temp 97.9 F 04/02/19 22:25 Pulse 95 04/02/19 22:25 Resp 17 04/02/19 22:25 BP Pulse Ox 98 04/02/19 22:25 - Orders/Labs/Meds Orders: Active Orders 24 hr Category Date Time Status CULTURE URINE [RM] Stat Lab 04/02/19 22:32 Received Labs: Laboratory Tests 04/02/19 04/02/19 Range/Units 22:32 22:32 Urine Color YELLOW Urine Appearance CLOUDY Urine pH 6.0 (5.0-8.0) Ur Specific [place] 1.010 (1.001-1.035) Urine Protein NEGATIVE (NEGATIVE) mg/dL Urine Glucose (UA) NEGATIVE (NEGATIVE) mg/dL Urine Ketones NEGATIVE (NEGATIVE) mg/dL Urine Occult Blood LARGE H (NEGATIVE) Urine Nitrite NEGATIVE (NEGATIVE) Urine Bilirubin NEGATIVE (NEGATIVE) Urine Urobilinogen 0.2 (<2.0) EU/dL Ur Leukocyte Esterase LARGE H (NEGATIVE) Urine RBC 10-15 (0-2/HPF) Urine WBC 75-80 (0-5/HPF) Ur Epithelial Cells MODERATE (NONE-FEW) Urine Bacteria 1+ H (NEGATIVE) Urine Mucus LIGHT (NONE-MOD) Urine HCG, Qual NEGATIVE (NEGATIVE) Departure - Departure Time of Disposition: 23:12 Disposition: Home, Self-Care 01 Condition: Good Clinical Impression: UTI, Urinary tract infectious disease, Hypertension - Discharge Information Referrals: PCP,None [Primary Care Provider] - Additional Instructions: The following information is given to patients seen in the emergency department who are being discharged to home. This information is to outline your options for follow-up care. We provide all patients seen in our emergency department with a follow-up referral. The need for follow-up, as well as the timing and circumstances, are variable depending upon the specifics of your emergency department visit. If you don't have a primary care physician on staff, we will provide you with a referral. We always advise you to contact your personal physician following an emergency department visit to inform them of the circumstance of the visit and for follow-up with them and/or the need for any referrals to a consulting specialist. The emergency department will also refer you to a specialist when appropriate. This referral assures that you have the opportunity for follow-up care with a specialist. All of these measure are taken in an effort to provide you with optimal care, which includes your follow-up. Under all circumstances we always encourage you to contact your private physician who remains a resource for coordinating your care. When calling for follow-up care, please make the office aware that this follow-up is from your recent emergency room visit. If for any reason you are refused follow-up, please contact the [facility] emergency department at and asked to speak to the emergency department charge nurse. - My Orders Last 24 Hours: My Active Orders 04/02/19 22:32 CULTURE URINE [RM] Stat - Assessment/Plan Last 24 Hours: My Active Orders 04/02/19 22:32 CULTURE URINE [RM] Stat
[2019-04-02] MEDS ORDERED: Lisinopril/Hydrochlorothiazide 10-12.5 MG Tab PO ONE (23:13)
[2019-04-02] MEDS ORDERED: Ciprofloxacin 500 MG Tab PO ONE (23:13)
[2019-04-02 23:51] VITALS: BP 149/75
== END 2019-04-02 23:55 | disposition home or self-care (01) ==
LOC: MW.ED 21:36
DX: N39.0 Urinary tract infection, site not specified (principal); I10 Essential (primary) hypertension; Z88.8 Allergy status to other drugs, medicaments and biological substances; Z91.040 Latex allergy status
CPT/HCPCS: 81001; 81025; 87086; 87088; 87186; 99284; A9270; 99283

== ENCOUNTER 2019-04-24 23:45 | Emergency (ER) | payer OTHER ==
--- NOTE | 2019-04-25 00:06 | EDM.PDOC ---
ED HPI GENERAL MEDICAL PROBLEM - General Chief Complaint: 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 Problem Stated Complaint: UTI Time Seen by Provider: 04/25/19 00:01 - History of Present Illness INITIAL COMMENTS - FREE TEXT/NARRATIVE: HISTORY AND PHYSICAL: History of present illness: The patient is a 39-year-old female with a history of a hysterectomy and no kidney problems who presents with recurrence of UTI. The patient was seen here on April 02 and was diagnosed with the UTI and had a urine culture with Escherichia coli and she took 10 days of Cipro and she said she did feel improved but the symptoms have restarted over the last 2 days. She is having urgency frequency and pressure as well as burning with urination. The patient has had some nausea but no vomiting or diarrhea no fevers or chills and no flank pain. The patient says that after taking the Cipro she felt fine for couple of days but then the symptoms seem to be slowly restarting and she does not feel that antibiotic worked. I have checked the urine culture and it was sensitive to the Cipro. Review of systems: As per history of present illness and below otherwise all systems reviewed and negative. Past medical history: As per history of present illness and as reviewed below otherwise noncontributory. Surgical history: As per history of present illness and as reviewed below otherwise noncontributory. Social history: No reported history of drug or alcohol abuse. Family history: As per history of present illness and as reviewed below otherwise noncontributory. Physical exam: HEENT: Atraumatic, normocephalic, negative for conjunctival pallor or scleral icterus, mucous membranes moist, throat clear, neck supple, nontender, trachea midline. Lungs: Clear to auscultation, breath sounds equal bilaterally, chest nontender. Heart: S1S2, regular rate and rhythm no overt murmurs Abdomen: Soft, nondistended, nontender. . Negative for costovertebral tenderness. Pelvis: Stable nontender. 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: Deferred. Rectal: Deferred. Extremities: Atraumatic, full range of motion and no pedal edema Neurovascular unremarkable. Neuro: Awake, alert, oriented. Cranial nerves II through XII unremarkable. Cerebellum unremarkable. Motor and sensory unremarkable throughout. Exam nonfocal. Diagnostics: UA with reflex Therapeutics: Macrobid and Pyridium Impression: Recurrent UTI Definitive disposition and diagnosis as appropriate pending reevaluation and review of above. 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 History: Reports: None 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: Musculoskeletal History: Reports: Back Pain, Chronic Neurological History: Reports: MS Psychiatric History: Reports: None Endocrine/Metabolic History: Reports: None Hematologic History: Reports: None Immunologic History: Reports: None Oncologic (Cancer) History: Reports: None Dermatologic History: Reports: None - Infectious Disease History Infectious Disease History: Reports: MRSA - Past Surgical History Female Surgical History: Reports: Section, Hysterectomy Musculoskeletal Surgical History: Reports: Other (See Below) Social & Family History - Family History Family Medical History: Noncontributory - Caffeine Use Caffeine Use: Reports: Soda ED ROS GENERAL - Review of Systems Review Of Systems: ROS reveals no pertinent complaints other than HPI. ED EXAM, GENERAL - Physical Exam Exam: See Below (See dictation) Course - Vital Signs Last Recorded V/S: Last Vital Signs Temp 36.2 C 04/24/19 23:55 Pulse 105 H 04/24/19 23:55 Resp 18 04/24/19 23:55 BP 161/94 H 04/24/19 23:55 Pulse Ox 94 L 04/24/19 23:55 - Orders/Labs/Meds Orders: Active Orders 24 hr Category Date Time Status CULTURE URINE [RM] Stat Lab 04/24/19 23:50 Received Nitrofurantoin [place]/Macrocryst [Macrobid] Med 04/25/19 01:04 Once 100 mg PO ONETIME ONE Phenazopyridine [Pyridium] Med 04/25/19 01:04 Once 200 mg PO ONETIME ONE Medication Orders Nitrofurantoin Macrocrystals (Macrobid) 100 mg PO ONETIME ONE Stop: 04/25/19 01:05 Phenazopyridine HCl (Pyridium) 200 mg PO ONETIME ONE Stop: 04/25/19 01:05 Labs: Laboratory Tests 04/24/19 Range/Units 23:50 Urine Color YELLOW Urine Appearance SLT CLOUDY Urine pH 6.0 (5.0-8.0) Ur Specific [place] 1.015 (1.001-1.035) Urine Protein NEGATIVE (NEGATIVE) mg/dL Urine Glucose (UA) NEGATIVE (NEGATIVE) mg/dL Urine Ketones NEGATIVE (NEGATIVE) mg/dL Urine Occult Blood TRACE-INTACT H (NEGATIVE) Urine Nitrite NEGATIVE (NEGATIVE) Urine Bilirubin NEGATIVE (NEGATIVE) Urine Urobilinogen 0.2 (<2.0) EU/dL Ur Leukocyte Esterase LARGE H (NEGATIVE) Urine RBC 0-1 (0-2/HPF) Urine WBC 17-23 (0-5/HPF) Ur Epithelial Cells OCCASIONAL (NONE-FEW) Urine Bacteria 1+ H (NEGATIVE) Urine Mucus LIGHT (NONE-MOD) Meds: Medications Generic Name Dose Route Start Last Admin Trade Name Freq PRN Reason Stop Dose Admin Nitrofurantoin Macrocrystals 100 mg 04/25/19 01:04 Macrobid PO 04/25/19 01:05 ONETIME ONE Phenazopyridine HCl 200 mg 04/25/19 01:04 Pyridium PO 04/25/19 01:05 ONETIME ONE Departure - Departure Time of Disposition: 01:05 Disposition: Home, Self-Care 01 Condition: Good Clinical Impression: UTI (urinary tract infection) Qualifiers: Urinary tract infection type: site unspecified Hematuria presence: without hematuria Qualified Code(s): N39.0 - Urinary tract infection, site not specified - Discharge Information Referrals: PCP,None [Primary Care Provider] - Forms: ED Department Discharge Additional Instructions: The following information is given to patients seen in the emergency department who are being discharged to home. This information is to outline your options for follow-up care. We provide all patients seen in our emergency department with a follow-up referral. The need for follow-up, as well as the timing and circumstances, are variable depending upon the specifics of your emergency department visit. If you don't have a primary care physician on staff, we will provide you with a referral. We always advise you to contact your personal physician following an emergency department visit to inform them of the circumstance of the visit and for follow-up with them and/or the need for any referrals to a consulting specialist. The emergency department will also refer you to a specialist when appropriate. This referral assures that you have the opportunity for followup care with a specialist. All of these measure are taken in an effort to provide you with optimal care, which includes your followup. Under all circumstances we always encourage you to contact your private physician who remains a resource for coordinating your care. When calling for followup care, please make the office aware that this follow-up is from your recent emergency room visit. If for any reason you are refused follow-up, please contact the [facility] emergency department at and ask to speak to the emergency department charge nurse. [facility] Primary care- [place] [address] Push hydration and take all medications as prescribed. Please connect with one of our providers toward the end of your therapy to have reevaluation and further care as we discussed. Return To ER as needed and as discussed - My Orders Last 24 Hours: My Active Orders 04/24/19 23:50 CULTURE URINE [RM] Stat 04/25/19 01:04 Nitrofurantoin [place]/Macrocryst [Macrobid] 100 mg PO ONETIME ONE Phenazopyridine [Pyridium] 200 mg PO ONETIME ONE - Assessment/Plan Last 24 Hours: My Active Orders 04/24/19 23:50 CULTURE URINE [RM] Stat 04/25/19 01:04 Nitrofurantoin [place]/Macrocryst [Macrobid] 100 mg PO ONETIME ONE Phenazopyridine [Pyridium] 200 mg PO ONETIME ONE
[2019-04-25] MEDS ORDERED: Phenazopyridine 200 MG Tab PO ONE (01:04)
[2019-04-25] MEDS ORDERED: Nitrofurantoin Monohydrate/Macrocrystalline 100 MG Cap PO ONE (01:04)
[2019-04-25 01:21] VITALS: BP 131/85
== END 2019-04-25 01:15 | disposition home or self-care (01) ==
LOC: MW.ED 23:45
DX: N39.0 Urinary tract infection, site not specified (principal); I10 Essential (primary) hypertension; Z88.8 Allergy status to other drugs, medicaments and biological substances; Z91.040 Latex allergy status; Z79.899 Other long term (current) drug therapy
CPT/HCPCS: 81001; 87086; 87088; 87186; 99283; A9270

== ENCOUNTER 2019-10-05 19:20 | Emergency (ER) | payer BC, SELFPAY ==
[2019-10-05] MEDS ORDERED: Ketorolac 30 MG/ML SDV IVPUSH ONE (19:39)
[2019-10-05] MEDS ORDERED: cefTRIAXone 1 GM in Premix Bag 1 BAG IV ONE (19:39)
[2019-10-05] MEDS ORDERED: Sodium Chloride 0.9% 1,000 ML IV ONE (19:39)
--- NOTE | 2019-10-05 19:43 | EDM.PDOC ---
ED HPI GENERAL MEDICAL PROBLEM - General Chief Complaint: Headache Stated Complaint: JAW, EAR, SHOULDER PAIN W/HEADACHE Time Seen by Provider: 10/05/19 19:39 Source of Information: Reports: Patient - History of Present Illness INITIAL COMMENTS - FREE TEXT/NARRATIVE: HISTORY AND PHYSICAL: History of present illness: []Patient presents with your jaw pain and headache she rates 5 out of 10 began at 3 AM last night progressing until now no fever nausea vomiting chills sweats she does have some mild swelling over the parotid on the right with a right ear effusion no infection no mastoid tenderness dentition is largely been extracted on the rear portion of her jaw molars etc. in the remote past there is no jawline tenderness, she does have some anterior lymph node swelling on the anterior chain no fever nausea vomiting chills sweats Review of systems: As per history of present illness and below otherwise all systems reviewed and negative. Past medical history: As per history of present illness and as reviewed below otherwise noncontributory. Surgical history: As per history of present illness and as reviewed below otherwise noncontributory. Social history: No reported history of drug or alcohol abuse. Family history: As per history of present illness and as reviewed below otherwise noncontributory. Physical exam: HEENT: Atraumatic, normocephalic, pupils reactive, negative for conjunctival pallor or scleral icterus, mucous membranes moist, throat clear, neck supple, nontender, trachea midline. Lungs: Clear to auscultation, breath sounds equal bilaterally, chest nontender. Heart: S1S2, regular, negative for clicks, rubs, or JVD. Abdomen: Soft, nondistended, nontender. Negative for masses or hepatosplenomegaly. Negative for costovertebral tenderness. Pelvis: Stable nontender. 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: Deferred. Rectal: Deferred. Extremities: Atraumatic, negative for cords or calf pain. Neurovascular unremarkable. Neuro: Awake, alert, oriented. Cranial nerves II through XII unremarkable. Cerebellum unremarkable. Motor and sensory unremarkable throughout. Exam nonfocal. Diagnostics: [Clinical ] Therapeutics: [Normal saline Toradol 30 mg IV 1 g Rocephin IV Bactrim double strength #20 no refill ] Impression: [Parotitis ] Definitive disposition and diagnosis as appropriate pending reevaluation and review of above. 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 History: Reports: None 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: Musculoskeletal History: Reports: Back Pain, Chronic Neurological History: Reports: Migraines, MS Psychiatric History: Reports: None Endocrine/Metabolic History: Reports: None Hematologic History: Reports: None Immunologic History: Reports: None Oncologic (Cancer) History: Reports: None Dermatologic History: Reports: None - Infectious Disease History Infectious Disease History: Reports: MRSA - Past Surgical History Female Surgical History: Reports: Section, Hysterectomy Musculoskeletal Surgical History: Reports: Other (See Below) Social & Family History - Family History Family Medical History: Noncontributory - Tobacco Use Smoking Status *Q: Current Every Day Smoker Years of Tobacco use: 20 Packs/Tins Daily: 1 - Caffeine Use Caffeine Use: Reports: Soda - Recreational Drug Use Recreational Drug Use: No ED ROS GENERAL - Review of Systems Review Of Systems: See Below ED EXAM, GENERAL - Physical Exam Exam: See Below Course - Vital Signs Last Recorded V/S: Last Vital Signs Temp 97.3 F 10/05/19 19:25 Pulse 91 10/05/19 19:25 Resp 18 10/05/19 19:25 BP 207/105 H 10/05/19 19:25 Pulse Ox 94 L 10/05/19 19:25 - Orders/Labs/Meds Orders: Active Orders 24 hr Category Date Time Status Ketorolac [Toradol] Med 10/05/19 19:39 Once 30 mg IVPUSH ONETIME ONE Sodium Chloride 0.9% [Normal Saline] 1,000 ml Med 10/05/19 19:39 Ordered IV STAT cefTRIAXone [Rocephin in Dextrose,Iso-Osm 1 GM/50 ML] 1 Med 10/05/19 19:39 Ordered gm Premix Bag 1 bag IV ONETIME Departure - Departure Time of Disposition: 19:41 Disposition: Home, Self-Care 01 Condition: Good Clinical Impression: Parotitis - Discharge Information Referrals: PCP,None [Primary Care Provider] - Additional Instructions: Medication as prescribed Return if symptoms persist or worsen Follow-up with primary in 2 weeks [facility] - Primary Care [address] [place] [id number] The following information is given to patients seen in the emergency department who are being discharged to home. This information is to outline your options for follow-up care. We provide all patients seen in our emergency department with a follow-up referral. The need for follow-up, as well as the timing and circumstances, are variable depending upon the specifics of your emergency department visit. If you don't have a primary care physician on staff, we will provide you with a referral. We always advise you to contact your personal physician following an emergency department visit to inform them of the circumstance of the visit and for follow-up with them and/or the need for any referrals to a consulting specialist. The emergency department will also refer you to a specialist when appropriate. This referral assures that you have the opportunity for follow-up care with a specialist. All of these measure are taken in an effort to provide you with optimal care, which includes your follow-up. Under all circumstances we always encourage you to contact your private physician who remains a resource for coordinating your care. When calling for follow-up care, please make the office aware that this follow-up is from your recent emergency room visit. If for any reason you are refused follow-up, please contact the [facility] emergency department at and asked to speak to the emergency department charge nurse. - My Orders Last 24 Hours: My Active Orders 10/05/19 19:39 Ketorolac [Toradol] 30 mg IVPUSH ONETIME ONE Sodium Chloride 0.9% [Normal Saline] 1,000 ml IV STAT cefTRIAXone [Rocephin in Dextrose,Iso-Osm 1 GM/50 ML] 1 gm Premix Bag 1 bag IV ONETIME - Assessment/Plan Last 24 Hours: My Active Orders 10/05/19 19:39 Ketorolac [Toradol] 30 mg IVPUSH ONETIME ONE Sodium Chloride 0.9% [Normal Saline] 1,000 ml IV STAT cefTRIAXone [Rocephin in Dextrose,Iso-Osm 1 GM/50 ML] 1 gm Premix Bag 1 bag IV ONETIME
[2019-10-05] MEDS ORDERED: Labetalol 100 MG/20 ML MDV IVPUSH ONE (20:57)
[2019-10-05] MEDS ORDERED: Acetaminophen/HYDROcodone 325-5 MG Tab PO ONE (20:57)
[2019-10-05 21:20] VITALS: PULSE 72
[2019-10-05 21:30] VITALS: BP 167/106
== END 2019-10-05 21:34 | disposition home or self-care (01) ==
LOC: MW.ED 19:20
DX: K11.20 Sialoadenitis, unspecified (principal); I10 Essential (primary) hypertension; F17.210 Nicotine dependence, cigarettes, uncomplicated; Z91.040 Latex allergy status; Z88.8 Allergy status to other drugs, medicaments and biological substances
CPT/HCPCS: 96365; 96375; 99284; A9270; J0696; J1885; J3490; J7040

== ENCOUNTER 2020-01-07 16:40 | Emergency (ER) | payer BC ==
--- NOTE | 2020-01-07 19:21 | EDM.PDOC ---
ED HPI GENERAL MEDICAL PROBLEM - General Chief Complaint: ENT Problem Stated Complaint: RIGHT EAR PROBLEM Time Seen by Provider: 01/07/20 17:04 Source of Information: Reports: Patient History Limitations: Reports: No Limitations - History of Present Illness INITIAL COMMENTS - FREE TEXT/NARRATIVE: HISTORY AND PHYSICAL: History of present illness: Patient is a 39-year-old female who presents to the ED today with concern of right ear pain over the last 2 days. Patient states 2 days ago she felt a pimple in the middle of her ear canal. Patient states she used a Q-tip and popped this and had pus come out of the pimple 2 days ago. Patient states today when she woke up the right ear pain was more significant and bothersome to her. Patient denies any direct trauma or injury or any other symptoms or concerns. Patient states she has a history of multiple sclerosis but is not taking any medications for this and has not over the past 6 months. Patient denies fever, chills, chest pain, shortness of breath, or cough. Denies headache, neck stiff ness, change in vision, syncope, or near syncope. Denies nausea, vomiting, abdominal pain, diarrhea, constipation, or dysuria. Has not noted any blood in urine or stool. Patient has been eating and drinking appropriately. Review of systems: As per history of present illness and below otherwise all systems reviewed and negative. Past medical history: As per history of present illness and as reviewed below otherwise noncontributory. Surgical history: As per history of present illness and as reviewed below otherwise noncontributory. Social history: See social history for further information Family history: As per history of present illness and as reviewed below otherwise noncontributory. Physical exam: General: Patient is alert, oriented, and in no acute distress. Patient sitting comfortably on exam table. HEENT: Atraumatic, normocephalic, pupils equal and reactive bilaterally, negative for conjunctival pallor or scleral icterus, mucous membranes moist, TMs normal bilaterally, right external auditory canal is mildly edematous with debris in the canal, there is a pinpoint area of erythema in the middle canal with surrounding moderate edema of this area, patient does have pain with movement of the right auricle and pain with palpation of tragus but negative mastoid tenderness, throat clear, neck supple, nontender, trachea midline. No drooling or trismus noted. No meningeal signs. No hot potato voice noted. Lungs: Clear to auscultation, breath sounds equal bilaterally, chest nontender. Heart: S1S2, regular rate and rhythm without overt murmur Abdomen: Soft, nondistended, nontender. Negative for masses or hepatosplenomegaly. Negative for costovertebral tenderness. Pelvis: Stable nontender. 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: Deferred. Rectal: Deferred. Skin: Intact, warm, dry. No lesions or rashes noted. Extremities: Atraumatic, negative for cords or calf pain. Neurovascular unremarkable. Neuro: Awake, alert, oriented. Cranial nerves II through XII unremarkable. Cerebellum unremarkable. Motor and sensory unremarkable throughout. Exam nonfocal. Notes: Discussed importance for follow-up with a primary care provider. Voices understanding and is agreeable to plan of care. Denies any further questions or concerns at this time. Diagnostics: None Therapeutics: None Prescription: Ciprodex, Ciprofloxacin Impression: Acute otitis externa, right Localized cellulitis, right ear Plan: 1. Take medication as prescribed. You can alternate ibuprofen and Tylenol as directed for pain and discomfort. 2. Follow-up with a primary care provider as discussed. Return to the ED as needed and as discussed. Definitive disposition and diagnosis as appropriate pending reevaluation and review of above. - Related Data Allergies Allergy/AdvReac Type Severity Reaction Status Date / Time fentanyl Allergy Shortness Verified 10/05/19 19:35 of Breath Latex, Natural Rubber Allergy Blisters Verified 10/05/19 19:35 Home Meds: Home Meds Ciprofloxacin [Ciprofloxacin HCl] 500 mg PO BID 10 Days #20 tab 01/07/20 [Rx] Ciprofloxacin/Dexamethasone [Ciprodex Otic Susp] 4 drop OT BID 7 Days #1 bottle 01/07/20 [Rx] DULoxetine HCl [Duloxetine HCl] 01/07/20 [History] Lisinopril/Hydrochlorothiazide [Lisinopril-Hctz 20-25 mg Tab] 01/07/20 [History ] Metoprolol Succinate [Toprol XL] 01/07/20 [History] amLODIPine [Norvasc] 01/07/20 [History] atorvaSTATin [Lipitor] 01/07/20 [History] Past Medical History HEENT History: Reports: None Cardiovascular History: Reports: Hypertension Respiratory History: Reports: None Gastrointestinal History: Reports: None Other Gastrointestinal History: 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 History: Reports: None [employer] CHIEF History: Reports: Musculoskeletal History: Reports: Back Pain, Chronic Neurological History: Reports: Migraines, MS Psychiatric History: Reports: None Endocrine/Metabolic History: Reports: None Hematologic History: Reports: None Immunologic History: Reports: None Oncologic (Cancer) History: Reports: None Dermatologic History: Reports: None - Infectious Disease History Infectious Disease History: Reports: MRSA - Past Surgical History Female Surgical History: Reports: Section, Hysterectomy Musculoskeletal Surgical History: Reports: Other (See Below) Social & Family History - Family History Family Medical History: Noncontributory - Caffeine Use Caffeine Use: Reports: Soda ED ROS GENERAL - Review of Systems Review Of Systems: Comprehensive ROS is negative, except as noted in HPI. ED EXAM, GENERAL - Physical Exam Exam: See Below (see dictation) Departure - Departure Time of Disposition: 19:17 Disposition: Home, Self-Care 01 Clinical Impression: Acute otitis externa of right ear Qualifiers: Otitis externa type: unspecified type Qualified Code(s): H60.501 - Unspecified acute noninfective otitis externa, right ear Cellulitis Qualifiers: Site of cellulitis: head Qualified Code(s): L03.811 - Cellulitis of head [any part, except face] - Discharge Information Prescriptions: Ciprofloxacin [Ciprofloxacin HCl] 500 mg PO BID 10 Days #20 tab Ciprofloxacin/Dexamethasone [Ciprodex Otic Susp] 4 drop OT BID 7 Days #1 bottle Referrals: PCP,None [Primary Care Provider] - Additional Instructions: The following information is given to patients seen in the emergency department who are being discharged to home. This information is to outline your options for follow-up care. We provide all patients seen in our emergency department with a follow-up referral. The need for follow-up, as well as the timing and circumstances, are variable depending upon the specifics of your emergency department visit. If you don't have a primary care physician on staff, we will provide you with a referral. We always advise you to contact your personal physician following an emergency department visit to inform them of the circumstance of the visit and for follow-up with them and/or the need for any referrals to a consulting specialist. The emergency department will also refer you to a specialist when appropriate. This referral assures that you have the opportunity for follow-up care with a specialist. All of these measure are taken in an effort to provide you with optimal care, which includes your follow-up. Under all circumstances we always encourage you to contact your private physician who remains a resource for coordinating your care. When calling for follow-up care, please make the office aware that this follow-up is from your recent emergency room visit. If for any reason you are refused follow-up, please contact the [facility] Emergency Department at and asked to speak to the emergency department charge nurse. [facility] [address] [place] [id number] [id number] 1. Take medication as prescribed. You can alternate ibuprofen and Tylenol as directed for pain and discomfort. 2. Follow-up with a primary care provider as discussed. Return to the ED as needed and as discussed.
[2020-01-07 19:35] VITALS: BP 142/76; PULSE 72
== END 2020-01-07 19:30 | disposition home or self-care (01) ==
LOC: MW.ED 16:40
DX: H60.11 Cellulitis of right external ear (principal); G35 Multiple sclerosis; I10 Essential (primary) hypertension; Z91.040 Latex allergy status; Z88.8 Allergy status to other drugs, medicaments and biological substances; Z79.899 Other long term (current) drug therapy
CPT/HCPCS: 99282; 99283

== ENCOUNTER 2021-03-04 08:36 | Emergency (ER) | payer BC, OTHER ==
[2021-03-04] MEDS ORDERED: Diphtheria,Pertussis(Acell),Tetanus Vaccine 0.5 ML Syringe IM ONE (09:03)
[2021-03-04] MEDS ORDERED: Bacitracin Oint 1 GM U/D Packet TOP ONE ×2 (10:08→10:11)
--- NOTE | 2021-03-04 10:09 | EDM.PDOC ---
ED HPI GENERAL MEDICAL PROBLEM - General Chief Complaint: Laceration Stated Complaint: CUT LFT HAND Time Seen by Provider: 03/04/21 08:47 - History of Present Illness INITIAL COMMENTS - FREE TEXT/NARRATIVE: CHIEF COMPLAINT(S): Finger laceration HISTORY OF PRESENT ILLNESS: This is a 40-year-old with a past medical history of multiple sclerosis and hypertension who comes to the emergency department with a chief complaint of finger laceration. The patient states that she was at work prior to arrival cutting some lettuce with some new knives that they had. She states that she accidentally cut her left thumb. She states that the bleeding has stopped and there is minimal pain. She denies any numbness or tingling and has full range of motion of her left hand. She states that she last had a tetanus in 2012. She denies injuring herself anywhere else. She denies any chest pain, shortness of breath, fever, chills, abdominal pain, nausea or vomiting. REVIEW OF SYSTEMS: Constitutional: Denies fever, chills. Cardiovascular: Denies chest pain Respiratory: Denies shortness of breath Gastrointestinal: Denies nausea vomiting Skin: Positive for left thumb laceration MSK: Denies joint pain, decreased range of motion Neurological: Denies, numbness, tingling, weakness PAST MEDICAL HISTORY: As per history of present illness and as reviewed below otherwise noncontributory. SURGICAL HISTORY: As per history of present illness and as reviewed below otherwise noncontributory. SOCIAL HISTORY: As per history of present illness and as reviewed below otherwise noncontributory. FAMILY HISTORY: As per history of present illness and as reviewed below otherwise noncontributory. EXAMINATION OF ORGAN SYSTEMS/BODY AREAS: Constitutional: Blood pressure is 175/1 8, heart rate 82, respirate 17 with an oxygen saturation 94% on room air. Temperature 36.2 General: Overall well-appearing woman who is in no acute distress Psychiatric: Appropriate mood and affect. Eyes: No scleral icterus or conjunctival erythema Cardiovascular: Regular, rate, and rhythm. No gallops, murmurs, or rubs. Bilateral upper extremity pulses symmetric and intact. Respiratory: Lungs clear to auscultation bilaterally. No wheezes, rales, or rhonchi. Musculoskeletal: Normal range of motion. The patient has full range of motion of the entire left thumb without any tendon exposed. There is a laceration on the lateral aspect of the right thumb. Capillary refill distally is intact. Skin: 1.5 cm left thumb laceration Neurological: Alert, GCS 15 distal sensation is intact MEDICAL DECISION MAKING AND COURSE IN THE ED WITH INTERPRETATION/REVIEW OF DIAGNOSTIC STUDIES: This is a 40-year-old woman with a past medical history of hypertension and multiple sclerosis who comes to the emergency department with left thumb laceration after cutting it accidentally with a knife. We will update the patient's tetanus and perform a digital block and repair with stitches. I do not believe any imaging is indicated as the patient did cut herself with a knife. Laceration Repair Note Repair of the 1.5 cm left thumb wound was done by myself. Wound was irrigated well with saline. Left thumb digital block was performed with approximately 2 cc of lidocaine. No foreign bodies were noted. The wound was repaired with 3 4-0 directed nylon sutures. Wound edges approximated well. Bacitracin ointment and a sterile dressing were applied. After laceration repair I did discuss with patient that the laceration sutures need to be removed in 7 to 10 days. She is to return for any signs of infection. She was amenable discharge at this time and had no further questions DISPOSITION: The patient was discharged home in stable condition. The patient will follow up with primary care physician or emergency department in 7 to 10 days for removal of stitches CONDITION: Fair PROCEDURES: Left thumb laceration repair, left thumb digital nerve block FINAL IMPRESSION(S)/DIAGNOSES: 1. Acute laceration to left thumb status post suture repair Chet Field M.D. Finger-Thumb Pain Score (Numeric/FACES): 7 - Related Data Allergies Allergy/AdvReac Type Severity Reaction Status Date / Time fentanyl Allergy Shortness Verified 03/04/21 08:56 of Breath Latex, Natural Rubber Allergy Blisters Verified 03/04/21 08:56 Home Meds: Home Meds Ciprofloxacin [Ciprofloxacin HCl] 500 mg PO BID 10 Days #20 tab 01/07/20 [Rx] Ciprofloxacin/Dexamethasone [Ciprodex Otic Susp] 4 drop OT BID 7 Days #1 bottle 01/07/20 [Rx] DULoxetine HCl [Duloxetine HCl] 01/07/20 [History] Fluconazole [Diflucan] 150 mg PO ONETIME PRN #1 tab 01/07/20 [Rx] Lisinopril/Hydrochlorothiazide [Lisinopril-Hctz 20-25 mg Tab] 01/07/20 [History] Metoprolol Succinate [Toprol XL] 01/07/20 [History] amLODIPine [Norvasc] 01/07/20 [History] atorvaSTATin [Lipitor] 01/07/20 [History] Past Medical History HEENT History: Reports: None Cardiovascular History: Reports: Hypertension Respiratory History: Reports: None Gastrointestinal History: Reports: None Other Gastrointestinal History: 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 History: Reports: None [employer] L[employer] SC[employer]ER History: Reports: Musculoskeletal History: Reports: Back Pain, Chronic Neurological History: Reports: Migraines, MS Psychiatric History: Reports: None Endocrine/Metabolic History: Reports: None Hematologic History: Reports: None Immunologic History: Reports: None Oncologic (Cancer) History: Reports: None Dermatologic History: Reports: None - Infectious Disease History Infectious Disease History: Reports: MRSA - Past Surgical History HEENT Surgical History: Reports: None Cardiovascular Surgical History: Reports: None GI Surgical History: Reports: None Female Surgical History: Reports: Section, Hysterectomy Neurological Surgical History: Reports: None Musculoskeletal Surgical History: Reports: Other (See Below) Other Musculoskeletal Surgeries/Procedures:: back surgery Dermatological Surgical History: Reports: None Social & Family History - Family History Family Medical History: No Pertinent Family History - Tobacco Use Tobacco Use Status *Q: Never Tobacco User - Caffeine Use Caffeine Use: Reports: None ED ROS GENERAL - Review of Systems Review Of Systems: See Below ED EXAM, SKIN/RASH Exam: See Below Course - Vital Signs Last Recorded V/S: Last Vital Signs Temp 36.6 C 03/04/21 10:22 Pulse 69 03/04/21 10:22 Resp 17 03/04/21 10:22 BP 118/77 03/04/21 10:22 Pulse Ox 97 03/04/21 10:22 - Orders/Labs/Meds Meds: Medications Discontinued Medications Generic Name Dose Route Start Last Admin Trade Name Freq PRN Reason Stop Dose Admin Bacitracin 1 dose 03/04/21 10:08 03/04/21 10:18 Bacitracin Oint 1 Gm U/D Packet TOP 03/04/21 10:09 1 dose ONETIME ONE Administration Bacitracin 1 dose 03/04/21 10:11 03/04/21 10:13 Bacitracin Oint 1 Gm U/D Packet TOP 03/04/21 10:12 Not Given ONETIME ONE Diphtheria/Tetanus/Acell Pertussis 0.5 ml 03/04/21 09:03 03/04/21 09:15 Diphtheria,Pertussis(Acell),Tetanus Vaccine 0.5 Ml Syringe IM 03/04/21 09:04 0.5 ml .ONCE ONE Administration Lidocaine HCl 5 ml 03/04/21 09:02 03/04/21 09:15 Lidocaine 1% 5 Ml Sdv INJECT 03/04/21 09:03 5 ml ONETIME ONE Administration Departure - Departure Time of Disposition: 10:08 Disposition: Home, Self-Care 01 Condition: Fair Clinical Impression: Finger laceration - Discharge Information *PRESCRIPTION DRUG MONITORING PROGRAM REVIEWED*: No *COPY OF PRESCRIPTION DRUG MONITORING REPORT IN PATIENT BERTHA: No Instructions: Laceration Care, Adult, [id number], Sutures, Carbon, or Adhesive Wound Closure, [id number] Referrals: PCP,None [Primary Care Provider] - Forms: ED Department Discharge Additional Instructions: You evaluate today on an emergent basis. At this time we did put 3 stitches in your left thumb laceration. These need to be removed in 7 to 10 days. If you are going to work I recommend using a glove and to change her gloves frequently and keep the area clean and dry. If you have any increase in redness or pus drainage please return to the emergency department. Please follow-up with primary care physician or emergency department for removal of stitches. Please use: Tylenol 500-1000mg every 6 hours (DO NOT TAKE MORE THAN 4000mg in 1 day) Ibuprofen 400mg every 6 hours (Take with food as it can cause ulcers, GI upset) Example schedule: 8:00 AM (Tylenol 500-1000mg) 11:00 AM (Ibuprofen 400mg) 2:00 PM (Tylenol 500-1000mg) 5:00 PM (Ibuprofen 400mg) Ice the area 20 minutes 4 times per day [facility] [address] [place] [id number] [address] The patient is informed of any results of their evaluation and diagnostic workup and all questions are answered. They are given discharge instructions and return precautions. The patient is stable for discharge. The patient states they understand and agree with the plan and that they will return if their symptoms get worse or if they have any new concerns. The following information is given to patients seen in the emergency department who are being discharged to home. This information is to outline your options for follow-up care. We provide all patients seen in our emergency department with a follow-up referral. The need for follow-up, as well as the timing and circumstances, are variable depending upon the specifics of your emergency department visit. If you don't have a primary care physician on staff, we will provide you with a referral. We always advise you to contact your personal physician following an emergency department visit to inform them of the circumstance of the visit and for follow-up with them and/or the need for any referrals to a consulting specialist. The emergency department will also refer you to a specialist when appropriate. This referral assures that you have the opportunity for follow-up care with a specialist. All of these measure are taken in an effort to provide you with optimal care, which includes your follow-up. Under all circumstances we always encourage you to contact your private physician who remains a resource for coordinating your care. When calling for follow-up care, please make the office aware that this follow-up is from your recent emergency room visit. If for any reason you are refused follow-up, please contact the [facility] Emergency Department at and asked to speak to the emergency department charge nurse. Sepsis Event Note (ED) - Evaluation Sepsis Screening Result: No Definite Risk - Focused Exam Vital Signs: Vital Signs Temp Pulse Resp BP Pulse Ox 03/04/21 10:22 36.6 C 69 17 118/77 97 03/04/21 08:57 36.2 C 82 17 175/108 H 94 L
[2021-03-04 10:27] VITALS: BP 118/77; PULSE 69
== END 2021-03-04 10:22 | disposition home or self-care (01) ==
LOC: MW.ED 08:36
DX: S61.012A Laceration without foreign body of left thumb without damage to nail, initial encounter (principal); G35 Multiple sclerosis; Z88.4 Allergy status to anesthetic agent; Z91.040 Latex allergy status; Z79.899 Other long term (current) drug therapy; Z23 Encounter for immunization; W26.0XXA Contact with knife, initial encounter; Y99.0 Civilian activity done for income or pay
CPT/HCPCS: 12001; 90471; 90715; 99282; 99282-25

== ENCOUNTER 2021-03-12 15:05 | Emergency (ER) | payer OTHER ==
[2021-03-12 20:22] VITALS: BP 167/96; PULSE 80
== END 2021-03-12 15:30 | disposition home or self-care (01) ==
LOC: MW.ED 15:05
DX: S61.012D Laceration without foreign body of left thumb without damage to nail, subsequent encounter (principal); W26.0XXD Contact with knife, subsequent encounter
CPT/HCPCS: 99281

== ENCOUNTER 2022-11-01 10:35 | Emergency (ER) | payer BC, OTHER ==
[2022-11-01] MEDS ORDERED: Ketorolac 30 MG/ML SDV IVPUSH ONE (11:10)
[2022-11-01] MEDS ORDERED: Ondansetron 4 MG/2 ML SDV IVPUSH ONE (11:10)
[2022-11-01] MEDS ORDERED: Sodium Chloride 0.9% 1,000 ML IV SCH (11:15)
[2022-11-01] MEDS ORDERED: Morphine 4 MG/ML Syringe IVPUSH ONE ×3 (11:33→14:49)
[2022-11-01 12:00] LABS: CARBON DIOXIDE,CO2 30.5 mmol/L (21.0-32.0); POTASSIUM,K 3.6 mmol/L (3.5-5.1)
[2022-11-01] MEDS ORDERED: cloNIDine 0.1 MG Tab PO ONE (12:02)
[2022-11-01] MEDS ORDERED: HYDROmorphone 2 MG/ML Syringe IVPUSH ONE (12:08)
[2022-11-01 13:28] LABS: CORONAVIRUS COVID-19 NAA NEGATIVE (NEGATIVE); INFLUENZA A NAA NEGATIVE (NEGATIVE); INFLUENZA B NAA NEGATIVE (NEGATIVE)
[2022-11-01] MEDS ORDERED: Iopamidol 755 MG/ML 500 ML Multipack Bottle IVPUSH STA (14:08)
[2022-11-01 16:16] VITALS: BP 171/93; PULSE 66
== END 2022-11-01 16:16 | disposition home or self-care (01) ==
LOC: MW.ED 10:35
DX: R10.11 Right upper quadrant pain (principal); I10 Essential (primary) hypertension; Z91.14 Patient's other noncompliance with medication regimen; Z88.8 Allergy status to other drugs, medicaments and biological substances; Z91.040 Latex allergy status; Z79.899 Other long term (current) drug therapy; Z20.822 Contact with and (suspected) exposure to COVID-19
CPT/HCPCS: 0240U; 36415; 74177; 76705; 80053; 81003; 83690; 85025; 96361; 96374; 96375; 96376; 99284; A9270; J1170; J1885; J2270; J2405; J7030; Q9967

== ENCOUNTER 2024-11-10 03:39 | Emergency (ER) | payer SELFPAY ==
[2024-11-10] MEDS: Dexamethasone 4 MG Tab PO ONE (03:56)
[2024-11-10 04:03] VITALS: BP 208/127; PULSE 92
== END 2024-11-10 06:24 | disposition home or self-care (01) ==
LOC: MW.ED 03:39
DX: J02.0 Streptococcal pharyngitis (principal); I10 Essential (primary) hypertension; F17.210 Nicotine dependence, cigarettes, uncomplicated; Z90.710 Acquired absence of both cervix and uterus; Z91.040 Latex allergy status; Z88.5 Allergy status to narcotic agent
CPT/HCPCS: 87651; 99283; J8540